=== PATIENT | female | born 1935 | race Caucasian/White ===

== ENCOUNTER → 2016-11-04 | Outpatient (CLI) | payer OTHER ==
[~2016-11-04] MED LIST: BROM0.0911 OP; CHOL2000 PO; CYAN100020 PO; IBUP-1459 PO; LORA-741 PO; MELO7.5T5 PO; OMEP40CA PO; OMEP40CA41 PO; PRED1SUS3 OPR; SERT-234 PO
[2016-11-04 17:04] LABS: BASO % 0.4 %; BASO ABS # 0.03 K/uL (0-0.2); COMPLETE YES; EOS % 0.6 %; HEMATOCRIT 46.1 % (37-47); IG% 0.3 %; LYMPH % 13.2 %; LYMPH ABS # 0.91 K/uL (1.2-3.4); MEAN CELL VOLUME 95.2 fL (80-100); MEAN CORPUSCULAR HEMOGLOBIN 30.6 pg (25-34); MEAN CORPUSCULAR HGB CONC 32.1 g/dl (32-36); MEAN PLATELET VOLUME 9.9 fL (7.4-10.4); MONO % 9.4 %; NEUT % 76.1 %; PLATELET COUNT 198 K/uL (130-400); RED BLOOD COUNT 4.84 M/uL (4.2-5.4); WHITE BLOOD COUNT 6.88 K/uL (4.8-10.8)
[2016-11-04 17:23] LABS: ALT/SGPT 29 U/L (12-78); AST/SGOT 17 U/L (15-37); BLOOD UREA NITROGEN 19 mg/dl (7-18); CALCIUM 8.7 mg/dl (8.5-10.1); CARBON DIOXIDE 27 mmol/L (21-32); CHLORIDE 110 mmol/L (98-107); CREATININE 0.69 mg/dl (0.60-1.20); GLUCOSE 94 mg/dl (70-99); POTASSIUM 4.2 mmol/L (3.5-5.1); SODIUM 143 mmol/L (136-145)
[2016-11-04 17:34] LABS: ALKALINE PHOSPHATASE 88 U/L (45-117)
== END | disposition home or self-care (01) ==
LOC: C.LABBC 12:40
PROVIDERS: ATTEND Internal Medicine
DX: R63.4 Abnormal weight loss (principal)

== ENCOUNTER → 2016-12-30 | Outpatient (CLI) | payer OTHER ==
[~2016-12-30] MED LIST changes: -BROM0.0911 OP; -IBUP-1459 PO; -OMEP40CA PO; -PRED1SUS3 OPR
--- NOTE | 2016-12-30 10:30 | DIAGNOSTIC IMAGING REPORT ---
ABDOMEN COMPLETE (US) CLINICAL HISTORY: 81 years-old Female with R63.4 Abnormal weight lossK92.1 [facility] Acute weight loss. TECHNIQUE: Multiple real time sonographic images of the abdomen were obtained assessing quijano-scale appearance. FINDINGS: PANCREAS: The pancreas is partially obscured by bowel gas. The visualized portions of the pancreas are normal without focal lesion or pancreatic duct dilatation. LIVER: The liver demonstrates a homogeneous parenchymal echotexture measuring up to 14 cm. There is no intrahepatic bile duct dilation, focal lesion, or contour nodularity. There is no ascites. GALLBLADDER: The gallbladder is filled with stones and minimal layering sludge without, wall thickening, or pericholecystic fluid. Negative sonographic Hennessy's sign. The common bile duct measures 0.2 cm. RIGHT KIDNEY: The right kidney measures 10.5 x 3.7 x 4.0 cm The parenchymal echotexture and cortical thickness are normal. Multiple right-sided kidney stones are noted measuring up to 0.5 cm without hydronephrosis. LEFT KIDNEY: The left kidney measures 10.7 x 5.0 x 5.1 cm. The parenchymal echotexture and cortical thickness are normal. No nephrolithiasis or hydronephrosis. SPLEEN: The spleen measures 9.5 cm and is normal in echotexture. No focal lesions are identified. VASCULATURE: Proximal aorta measures 1.3 x 1.5 cm. Mid aorta measures 1.3 x 1.37 m. Distal aorta measures 1.3 x 0.8 cm. The IVC appears patent. IMPRESSION: 1. Cholelithiasis and layering gallbladder sludge without sonographic evidence of acute cholecystitis. 2. Right-sided nephrolithiasis without hydronephrosis. 3. Remainder of the study is within normal limits. The above report was generated using voice recognition software. It may contain grammatical, syntax or spelling errors. Electronically signed by: Lele Lopez M.D. 12/30/2016 10:29 AM Dictated Date/Time: 12/30/2016 10:24 AM
== END | disposition home or self-care (01) ==
LOC: C.ULTR 08:51
PROVIDERS: ATTEND Internal Medicine
DX: K92.1 Melena (principal); R63.4 Abnormal weight loss; K80.20 Calculus of gallbladder without cholecystitis without obstruction; N20.0 Calculus of kidney

== ENCOUNTER → 2017-01-04 | Day surgery (SDC) | payer OTHER ==
[2016-12-28 10:22] VITALS: Ht 162.6 cm; Wt 59.1 kg
[~2017-01-04] VITALS: Ht 162.6 cm; Wt 59.1 kg
[~2017-01-04] MED LIST changes: +LIDOCAINE HCL 2% 2 ML VIAL (20MG/ML) ONE; +PROPOFOL IV EMULSION 10 MG/ML 20 ML VIAL IV ONE; +SODIUM CHLORIDE 0.9% 500ML 500 ML IV ONE
--- NOTE | 2017-01-04 08:54 | Endo History and Physical ---
History & Physical Date of Service: Jan 04, 2017. Chief Complaint: Hematochezia Referring Physician: Dr. Jai Leonard History of Present Illness rectal bleeding; weight loss; first colonoscopy Past Surgical History Hx Cardiac Surgery: No Hx Internal Defibrillator: No Hx Pacemaker: No Hx Abdominal Surgery: No Hx of Implantable Prosthesis: No Hx Post-Op Nausea and Vomiting: Yes Hx Cancer Surgery: No Hx Thoracic Surgery: No Hx Orthopedic: No Hx Urinary Tract Surgery: No Family History None Social History Smoking Status: Never Smoker Hx Substance Use: No Hx Alcohol Use: No Allergies Coded Allergies: NO KNOWN DRUG ALLERGIES (Verified Allergy, Unknown, ., 12/28/16) Current Medications Reported Home Medications Medications Dose Route/Sig Max Daily Dose Days Date Category Zoloft (Sertraline HCl) 100 Mg Tab 200 Mg PO QAM 12/28/16 Reported Ativan (Lorazepam) 0.5 Mg Tab 0.5 Tab PO QAM PRN 12/28/16 Reported Mobic (Meloxicam) 7.5 Mg Tab 7.5 Mg PO QAM 12/28/16 Reported Prilosec (Omeprazole) 40 Mg Cap 40 Mg PO QAM 12/28/16 Reported Vitamin B12 (Cyanocobalamin) 1,000 Mcg Tab 1 Tab PO QAM 02/23/16 Reported Vitamin D3 (Cholecalciferol) 2,000 Unit Cap 2 Cap PO QAM 90 02/23/16 Reported Vital Signs Weight (Kilograms): 59.09 Height (Feet): 5 Height (Inches): 4 Date Time Temp Pulse Resp B/P (MAP) Pulse Ox O2 Delivery O2 Flow Rate FiO2 01/04/17 08:15 36.9 83 20 180/82 (114) 98 Room Air Physical Exam General Appearance: WD/WN, no apparent distress Assessment and Plan colonoscopy today
--- NOTE | 2017-01-04 09:21 | GI REPORT ---
Procedure Date: 01/04/2017 8:44 AM Procedure: Colonoscopy Indications: Screening for colorectal malignant neoplasm, Incidental - Rectal bleeding, Weight loss Medicines: Propofol per Anesthesia Complications: No immediate complications. Estimated blood loss: None. Estimated Blood Loss: Estimated blood loss: none. Procedure: Pre-Anesthesia Assessment: - Prior to the procedure, a History and Physical was performed, and patient medications, allergies and sensitivities were reviewed. The patient's tolerance of previous anesthesia was reviewed. - The risks and benefits of the procedure and the sedation options and risks were discussed with the patient. All questions were answered and informed consent was obtained. - Patient identification and proposed procedure were verified prior to the procedure by the physician and the nurse. The procedure was verified in the pre-procedure area in the procedure room. - Mental Status Examination: alert and oriented. Airway Examination: normal oropharyngeal airway and neck mobility. Respiratory Examination: clear to auscultation. CV Examination: normal. Abdominal Examination: bowel sounds present, abdomen soft and non-tender, no masses or organomegaly noted. - ASA Grade Assessment: II - A patient with mild systemic disease. After I obtained informed consent, the scope was passed under direct vision. Throughout the procedure, the patient's blood pressure, pulse, and oxygen saturations were monitored continuously. The Scope was introduced through the anus and advanced to the terminal ileum. The colonoscopy was performed without difficulty. The patient tolerated the procedure well. The quality of the bowel preparation was good. Findings: The perianal and digital rectal examinations were normal. Pertinent negatives include normal sphincter tone and no palpable rectal lesions. The terminal ileum appeared normal. The entire examined colon appeared normal on direct and retroflexion views. Impression: - The examined portion of the ileum was normal. - The entire examined colon is normal on direct and retroflexion views. - Internal hemorrhoids. - No specimens collected. Recommendation: - No repeat colonoscopy due to age and the absence of advanced adenomas. - Return to primary care physician as previously scheduled. - Discharge patient to home. Daniak Garza D.O. Danika Garza DO 01/04/2017 9:20:57 AM This report has been signed electronically. Note Initiated On: 01/04/2017 8:44 AM I attest to the content of the Intraoperative Record and orders documented therein, exceptions below
--- NOTE | 2017-01-04 09:22 | Discharge Instructions ---
Endoscopy Patient Instructions Date / Procedure(s) Performed Jan 04, 2017. Colonoscopy Allergy Information Coded Allergies: NO KNOWN DRUG ALLERGIES (Verified Allergy, Unknown, ., 12/28/16) Discharge Date / Findings Jan 04, 2017. hemorrhoids Medication Instructions Stopped Medication(s): stopped Mobic week ago Restart Stopped Medication(s): OK to resume home medications Provider Instructions Activity Restrictions - No exercising or heavy lifting for 24 hours. - Do not drink alcohol the day of the procedure. - Do not drive a car or operate machinery until the day after the procedure. - Do not make any important decisions or sign important papers in 24 hours after the procedure. Following Day: - Return to full activity which may include returning to work/school. Diet Start your diet with liquids and light foods (jello, soup, juice, toast). Then eat your usual diet if not nauseated. Treatment For Common After Affects For mild abdominal pain, bloating, or excessive gas: - Rest - Eat lightly - Lie on right side Follow-Up Information Follow-up with Dr. Jai Leonard as scheduled Anesthesia Information What You Should Know You have had a procedure that required some medicine to reduce anxiety and discomfort. This treatment is called moderate sedation. After receiving the treatment, you may be sleepy, but you will be able to breathe on your own. The effects of the treatment may last for several hours. Follow these instructions along with Activity/Diet recommendations noted above: * Do NOT do anything where dizziness or clumsiness would be dangerous. * Rest quietly at home today, then you can be up and about tomorrow. * Have a responsible person stay with you the rest of today. * You may have had an I.V. today. If so, you may take the dressing off later today. Recommendations Call your doctor if: * Trouble breathing * Continuous vomiting for more than 24 hours * Temperature above 101 degrees * Severe abdominal pain or bloating * Pain not relieved by pain medicine ordered * There is increased drainage or redness from any incision * A large amount of rectal bleeding greater than 2-3 tablespoons. (If you had a polyp/s removed or have hemorrhoids, a small amount of blood - from the rectum is to be expected.) * You have any unanswered questions or concerns. IN THE EVENT OF A SERIOUS EMERGENCY, GO TO THE NEAREST EMERGENCY ROOM Your discharge instructions were prepared by provider Danika Garza. Patient Instructions Signature Page Mirna Racprudencio Patient (or Guardian) Signature/Date: I have read and understand the instructions given to me by my caregivers. Caregiver/RN/Doctor Signature/Date: The above-named patient and/or guardian has received patient instructions on this date. + Original Patient Signature Page (only) stays with chart. Please make copy for patient.
--- NOTE | 2017-01-04 09:43 | Anesthesiology Progress Note ---
Anesthesia Post Op Note Date & Time Jan 04, 2017 at 09:42 Vital Signs Pain Intensity: 0 Vital Signs Past 12 Hours Date Time Temp Pulse Resp B/P (MAP) Pulse Ox O2 Delivery O2 Flow Rate FiO2 01/04/17 09:29 72 20 121/65 (83) 96 Room Air 01/04/17 09:15 36.7 65 20 93/49 (64) 98 Nasal Cannula 2 01/04/17 08:15 36.9 83 20 180/82 (114) 98 Room Air Notes Mental Status: alert / awake / arousable, participated in evaluation Pt Amnestic to Procedure: Yes Nausea / Vomiting: adequately controlled Pain: adequately controlled Airway Patency, RR, SpO2: stable & adequate BP & HR: stable & adequate Hydration State: stable & adequate Anesthetic Complications: no major complications apparent Awake, doing well, VSS
[2017-01-04 09:45] VITALS: BP 136/61; PULSE 73; O2SAT 96
== END | disposition home or self-care (01) ==
LOC: C.GI 07:34
PROVIDERS: ATTEND Internal Medicine
DX: Z12.11 Encounter for screening for malignant neoplasm of colon (principal); K64.8 Other hemorrhoids
CPT/HCPCS: G0121

== ENCOUNTER → 2017-02-23 | Outpatient (CLI) | payer OTHER ==
[~2017-02-23] MED LIST changes: -LIDOCAINE HCL 2% 2 ML VIAL (20MG/ML) ONE; -PROPOFOL IV EMULSION 10 MG/ML 20 ML VIAL IV ONE; -SODIUM CHLORIDE 0.9% 500ML 500 ML IV ONE
[2017-02-23 12:27] LABS: BASO ABS # 0.05 K/uL (0-0.2); COMPLETE YES; EOS % 1.4 %; HEMATOCRIT 41.8 % (37-47); IG% 0.4 %; LYMPH % 21.7 %; LYMPH ABS # 1.12 K/uL (1.2-3.4); MEAN CELL VOLUME 92.9 fL (80-100); MEAN CORPUSCULAR HEMOGLOBIN 31.3 pg (25-34); MEAN CORPUSCULAR HGB CONC 33.7 g/dl (32-36); MEAN PLATELET VOLUME 9.8 fL (7.4-10.4); MONO % 8.5 %; PLATELET COUNT 203 K/uL (130-400); WHITE BLOOD COUNT 5.15 K/uL (4.8-10.8)
[2017-02-23 13:31] LABS: ALT/SGPT 23 U/L (12-78); AST/SGOT 18 U/L (15-37); BLOOD UREA NITROGEN 17 mg/dl (7-18); BUN/CREATININE RATIO 27.3 (10-20); CALCIUM 8.7 mg/dl (8.5-10.1); CARBON DIOXIDE 28 mmol/L (21-32); CHLORIDE 108 mmol/L (98-107); CREATININE 0.63 mg/dl (0.60-1.20); GLUCOSE 97 mg/dl (70-99); POTASSIUM 4.1 mmol/L (3.5-5.1); SODIUM 141 mmol/L (136-145)
[2017-02-23 13:35] LABS: ESTIMATED AVERAGE GLUCOSE 105 mg/dl; HA1C FLAG Normal (Normal)
[2017-02-23 13:44] LABS: ALB/GLOB RATIO 1.1 (0.9-2); ALKALINE PHOSPHATASE 95 U/L (45-117); CHOLESTEROL 185 mg/dl (0-200); CHOLESTEROL/HDL RATIO 3.6; HDL CHOLESTEROL 52 mg/dl; LDL CHOLESTEROL CALCULATED 115 mg/dl; TRIGLYCERIDES 89 mg/dl (0-150); VERY LOW DENSITY LIPOPROT CALC 18 mg/dl
== END | disposition home or self-care (01) ==
LOC: C.LABPVFM 08:44
PROVIDERS: ATTEND Internal Medicine
DX: F41.9 Anxiety disorder, unspecified (principal)

== ENCOUNTER 2020-10-05 22:28 | Inpatient (IN) ==
[2020-10-05] MEDS ORDERED: MoRPHine SULFATE 4 MG/ML 1 ML CARP\\VIAL IV PRN (22:37)
[2020-10-05] MEDS ORDERED: ACETAMINOPHEN 1000 MG/100 ML IV IV STA (22:37)
--- NOTE | 2020-10-05 22:42 | Emergency Department Note ---
Impression & Plan Left hip pain, Closed fracture of left hip, Fall ED Provider Note NAME: LINDA LINDA AGE: 85 SEX: F : 1935 ARRIVES VIA: Ambulance INFORMANT: [Patient][ems] ED PROVIDER(S): [Caesar Perez MD] CHIEF COMPLAINT: Left hip and leg pain HISTORY OF PRESENT ILLNESS: The patient is an 85-year-old female who presents to the ER by ambulance after falling onto her buttock and injuring her left hip and leg. The pain is present primarily with movement, not really when she is still. There was no reported loss of consciousness. No reported head injury. The patient does not have any headache or neck pain. She does complain of left hip and leg pain when she is moved. The patient states that she has difficulty with her balance and walking and basally just lost her stability and fell. She fell as she was trying to go up a few stairs. Patient presents covered in stool. The nursing staff was busy cleaning her when I entered the room. REVIEW OF SYSTEMS: See HPI for pertinent positives and negatives. A total of ten systems were re viewed and were otherwise negative. PMHx/PSHx: See Below SOCIAL HISTORY: See Below. PHYSICAL EXAM: GENERAL: Patient is in no acute distress. HEENT: No acute trauma, normocephalic atraumatic, mucous membranes moist, no nasal congestion, no scleral icterus. NECK: No stridor, no adenopathy, nontender posterior C-spine, trachea is midline. LUNGS: Clear to auscultation bilaterally, no wheeze, no rhonchi, breath sounds equal. HEART: 2/6 systolic murmur, regular rate and rhythm. ABDOMEN: Soft, nontender, bowel sounds positive, no hernias, no peritonitis. EXTREMITIES: No cyanosis. The left lower extremity is externally rotated and somewhat shortened. The patient does have pain to move or palpate the area of t he left hip and proximal femur. No evidence for left lower extremity neurovascular compromise. NEUROLOGIC: Awake and alert, oriented x3, no speech slur, no acute motor or sensory deficits, no focal weakness. SKIN: No rash, no jaundice, no diaphoresis. DIFFERENTIAL DIAGNOSIS: Fracture, dislocation, neurovascular compromise, compartment syndrome, intracranial bleeding, C-spine injury, soft tissue injury, as well as other pathologies. EMERGENCY DEPARTMENT COURSE/PROCEDURES: ECG: Indication was hip fracture. The ECG shows a normal sinus rhythm with a rate of 77. There are some inverted T waves in the lateral leads. There is a potential old inferior infarct. There is no ST elevation, no PVCs. The QTc is 468. Continuous Cardiac Monitoring: An order was placed for continuous cardiac monitoring. The monitor shows a rate of 73 with normal sinus rhythm. MEDICAL DECISION MAKING: There is no leukocytosis or concerning anemia. There is a normal platelet count. No coagulopathy. No significant electrolyte abnormality or kidney failure. No concerning liver enzyme elevation. Covid testing is pending. Chest film showed some chronic change to the parenchyma, no pneumonia or CHF. P telma and left femur films demonstrate a left intertrochanteric hip fracture. No pelvic fracture. On exam, the patient's left hip was painful with movement. Her left lower extremity had the appearance of a left hip fracture. I could not find any evidence for injury to the head or neck or upper extremities. Patient received IV Tylenol, she was given IV morphine. I did contact the orthopedist decision support analyst. I spoke with the patient and her family. I did talk with case management. The on-call hospitalist was consulted. Patient requires a hospital stay and orthopedic intervention. Past Med/Surg History Medical History Abnormal electrocardiogram Abnormal weight loss Anxiety Arm paresthesia, right Arthralgia of multiple joints Arthritis of hand, left Arthritis of hand, right Arthritis of knee B12 deficiency Back pain, lumbosacral Chronic pain of both knees Depression Depression with anxiety Dyslipidemia Elevated blood pressure reading Fatigue Generalized osteoarthritis of multiple sites GERD (gastroesophageal reflux disease) Hematochezia HTN (hypertension) Myalgia Osteoarthritis of knees, bilateral Osteoporosis Spina bifida occulta Thrombocytopenia Vitamin D deficiency Surgical History H/O breast biopsy 2009 Family History Unknown Hypertension Diabetes Alcoholism Hyperlipidemia Grandfather , AGE 60 COPD (chronic obstructive pulmonary disease) Mother , AGE 70 FIBROSIS No problems noted. Denies family history of Ovarian cancer Prostate cancer Myocardial infarction Breast cancer Colorectal cancer Social History Smoking Status: Never smoker Second Hand Exposure: No; Hx Alcohol Use: No Hx Substance Use: No Preferred Language: Slovak Communication Ability: Effective Visual Impairment: Limited Hearing Ability: Use of Hearing Aid Kidney Puller Required: No Beliefs That Will Affect Care: None marital status: Current Living Situation: Alone current occupational status: retired How many Children do You have: 1 Feels Safe at Home: Yes Childhood Exposure to Second-Hand Smoke: Yes caffeine: Yes (drinks soda once a day ) Dental Care, Regularly: Yes Physical Activity Frequency: Does not Exercise Seatbelt Use: always Sunscreen Use: No (doesn't go in the sun ) Allergies Allergies Allergy/AdvReac Type Severity Reaction Status Date / Time No Known Drug Allergies Allergy Unknown . Verified 09/18/20 13:28 Home Meds Home Medications Medication Instructions Recorded Confirmed calcium carbonate 600 mg calcium 600 mg PO DAILY #1 tab 09/29/18 10/05/20 (1,500 mg) tablet cholecalciferol (vitamin D3) 25 2,000 units PO DAILY tab 09/29/18 10/05/20 mcg (1,000 unit) tablet cyanocobalamin (vitamin B-12) 1,000 mcg PO DAILY #90 tab 09/29/18 10/05/20 1,000 mcg tablet Previous Rx's Medication Instructions Recorded alendronate 70 mg tablet 70 mg PO WEEKLY #12 tab 11/28/19 amlodipine 10 mg tablet 10 mg PO DAILY #90 tab 11/28/19 omeprazole 40 mg capsule,delayed 40 mg PO DAILY #90 cap 03/31/20 release meloxicam 7.5 mg tablet 7.5 mg PO DAILY PRN #30 tab 06/27/20 sertraline 100 mg tablet 200 mg PO DAILY #180 tab 07/25/20 Walking Cane 1 ea .ROUTE .COMPLEX #1 ea 09/18/20 lorazepam 0.5 mg tablet 0.25 mg PO DAILY PRN #30 tab 09/29/20 Results & Data (ED) Vital Signs Vital Signs - 24 hr 10/05/20 22:40 10/05/20 22:41 10/05/20 23:32 Temperature 36.7 C Temperature Source Oral Pulse Rate 73 80 80 Pulse Rate from SpO2 Sensor 80 79 Respiratory Rate 18 23 24 Respiratory Effort / Characteristics Non-Labored Spontaneous Respiratory Depth Normal Respiratory Pattern Regular Blood Pressure 198/73 H 198/73 H 149/70 H Blood Pressure Mean 114 114 96 Blood Pressure Position Lying Pulse Oximetry 95 93 94 Oxygen Delivery Method Room Air Room Air Room Air Sepsis Recent Fever Within 48 Hours No Sepsis New/Unexplained Change in Mental Status No Sepsis Action Taken by Nursing No Action Required Home Medications Current Medication List: was personally reviewed by me Laboratory Data Attestation: I reviewed the patient's lab results. Result diagrams: 10/05/20 22:48 10/05/20 22:48 Lab Results 10/05/20 10/05/20 10/05/20 Range/Units 22:48 22:48 22:48 WBC 9.31 (4.8-10.8) K/uL RBC 4.61 (4.2-5.4) M/uL Hgb 13.6 (12.0-16.0) g/dL Hct 41.4 (37-47) % MCV 89.8 (80-100) fL MCH 29.5 (25-34) pg MCHC 32.9 (32-36) g/dL RDW Std Deviation 45.3 (36.4-46.3) fL RDW Coeff of Angelica 13.8 (11.5-14.5) % Plt Count 210 (130-400) K/uL MPV 9.0 (7.4-10.4) fL Immature Gran % (Auto) 0.4 % Neut % (Auto) 80.3 % Lymph % (Auto) 10.4 % [place] % (Auto) 8.4 % Eos % (Auto) 0.3 % Baso % (Auto) 0.2 % Neut # (Auto) 7.47 H (1.4-6.5) K/uL Lymph # (Auto) 0.97 L (1.2-3.4) K/uL [place] # (Auto) 0.78 H (0.11-0.59) K/uL Eos # (Auto) 0.03 (0-0.5) K/uL Baso # (Auto) 0.02 (0-0.2) K/uL Immature Gran # (Auto) 0.04 H (0.00-0.02) K/uL PT 9.7 (9.0-12.0) Seconds INR 1.0 (0.9-1.1) APTT 23.2 (21.0-31.0) Seconds PTT Ratio 0.9 Sodium (136-145) mmol/L Potassium (3.5-5.1) mmol/L Chloride (98-107) mmol/L Carbon Dioxide (21-32) mmol/L Anion Gap (3-11) BUN (7-18) mg/dl Creatinine (0.6-1.2) mg/dl Est Cr Clr Drug Dosing ml/min Est GFR ( Amer) ml/min Est GFR (Non-Af Amer) ml/min BUN/Creatinine Ratio (10-20) Glucose (70-99) mg/dl Calcium (8.5-10.1) mg/dl Total Bilirubin (0.2-1) mg/dl AST (15-37) U/L ALT (12-78) U/L Alkaline Phosphatase (45-117) U/L Total Protein (6.4-8.2) gm/dl Albumin (3.4-5.0) gm/dl Globulin (2.5-4.0) gm/dl Albumin/Globulin Ratio (0.9-2) COVID-19 Eval Order Blood Type Cancelled Antibody Screen Cancelled 10/05/20 10/05/20 10/05/20 Range/Units 22:48 23:30 23:31 WBC (4.8-10.8) K/uL RBC (4.2-5.4) M/uL Hgb (12.0-16.0) g/dL Hct (37-47) % MCV (80-100) fL MCH (25-34) pg MCHC (32-36) g/dL RDW Std Deviation (36.4-46.3) fL RDW Coeff of Angelica (11.5-14.5) % Plt Count (130-400) K/uL MPV (7.4-10.4) fL Immature Gran % (Auto) % Neut % (Auto) % Lymph % (Auto) % [place] % (Auto) % Eos % (Auto) % Baso % (Auto) % Neut # (Auto) (1.4-6.5) K/uL Lymph # (Auto) (1.2-3.4) K/uL [place] # (Auto) (0.11-0.59) K/uL Eos # (Auto) (0-0.5) K/uL Baso # (Auto) (0-0.2) K/uL Immature Gran # (Auto) (0.00-0.02) K/uL PT (9.0-12.0) Seconds INR (0.9-1.1) APTT (21.0-31.0) Seconds PTT Ratio Sodium 140 (136-145) mmol/L Potassium 4.1 (3.5-5.1) mmol/L Chloride 106 (98-107) mmol/L Carbon Dioxide 26 (21-32) mmol/L Anion Gap 8.0 (3-11) BUN 19 H (7-18) mg/dl Creatinine 0.63 (0.6-1.2) mg/dl Est Cr Clr Drug Dosing 51.5 ml/min Est GFR ( Amer) 93.5 ml/min Est GFR (Non-Af Amer) 80.6 ml/min BUN/Creatinine Ratio 29.7 H (10-20) Glucose 128 H (70-99) mg/dl Calcium 8.8 (8.5-10.1) mg/dl Total Bilirubin 0.3 (0.2-1) mg/dl AST 23 (15-37) U/L ALT 22 (12-78) U/L Alkaline Phosphatase 109 (45-117) U/L Total Protein 7.0 (6.4-8.2) gm/dl Albumin 3.4 (3.4-5.0) gm/dl Globulin 3.6 (2.5-4.0) gm/dl Albumin/Globulin Ratio 1.0 (0.9-2) COVID-19 Eval Order Covid19 at [facility] Blood Type O Positive Antibody Screen NEGATIVE Administered Medications Morphine Sulfate (Morphine Sulfate 4 Mg/Ml 1 Ml Carp\Vial) 4 mg IV Q30M PRN PRN Reason: Severe Pain (Rating 7,8,9,10) Stop: 10/19/20 22:36 Last Admin: 10/05/20 22:55 Dose: 4 mg Documented by: [id number] Discontinued Medications Acetaminophen (Acetaminophen 1000 Mg/100 Ml Iv) 1,000 mg IV NOW STA Stop: 10/05/20 22:38 Last Admin: 10/05/20 22:55 Dose: 1,000 mg Documented by: [id number] Imaging Data Attestation: I personally reviewed and interpreted this imaging study as follows: My Impression: Pelvis and left femur films: There is no pelvic fracture. There is an intertrochanteric left hip fracture. Chest x-ray: There is some chronic parenchymal change, no pneumonia or CHF per my review. Head Trauma GCS Score: 15 Discharge Plan Visit Data Chief Complaint: Hip Pain Stated Complaint: FALL w/ lt HIP/THIGH PAIN ON MOVEMENT ED Provider: Caesar Perez Discharge Problem: Left hip pain, Closed fracture of left hip, Fall Patient Disposition: Admitted As Inpatient Condition: Fair Forms Stand Alone Forms: [facility], Virtual Emergency Department, Important Visit Information Prescriptions Prescriptions: No Action alendronate 70 mg tablet 70 mg PO WEEKLY Qty: 12 RF: 3 amlodipine 10 mg tablet 10 mg PO DAILY Qty: 90 RF: 3 omeprazole 40 mg capsule,delayed release(DR/EC) 40 mg PO DAILY Qty: 90 RF: 3 meloxicam 7.5 mg tablet 7.5 mg PO DAILY PRN (Reason: PRN) Qty: 30 RF: 3 sertraline [Zoloft] 100 mg tablet 200 mg PO DAILY Qty: 180 RF: 3 lorazepam 0.5 mg tablet 0.25 mg PO DAILY PRN (Reason: anxiety) Qty: 30 RF: 0 Walking Cane Misc 1 ea .ROUTE .COMPLEX Qty: 1 RF: 0 calcium carbonate 600 mg calcium (1,500 mg) tablet 600 mg PO DAILY Qty: 1 RF: 0 cyanocobalamin (vitamin B-12) 1,000 mcg tablet 1,000 mcg PO DAILY Qty: 90 RF: 0 cholecalciferol (vitamin D3) 1,000 unit tablet 2,000 units PO DAILY RF: 0 Referrals Referrals: Jai Leonard MD [Primary Care Provider] - Discharge Problem: Closed fracture of left hip Qualifiers: Encounter type: initial encounter Qualified Code(s): S72.002A - Fracture of unspecified part of neck of left femur, initial encounter for closed fracture Fall Qualifiers: Encounter type: initial encounter Qualified Code(s): W19.XXXA - Unspecified fall, initial encounter
[2020-10-05 22:58] LABS: Basophils # (auto) 0.02 K/uL (0-0.2); Basophils % (auto) 0.2 %; Eosinophils # (auto) 0.03 K/uL (0-0.5); Eosinophils % (auto) 0.3 %; Hematocrit (blood only) 41.4 % (37-47); Hemoglobin 13.6 g/dL (12.0-16.0); Immature Granulocytes # (auto) 0.04 K/uL (0.00-0.02); Immature Granulocytes % (auto) 0.4 %; Lymphocytes # (auto) 0.97 K/uL (1.2-3.4); Lymphocytes % (auto) 10.4 %; Mean Corpuscular Hemoglobin 29.5 pg (25-34); Mean Corpuscular Hgb Conc 32.9 g/dL (32-36); Mean Corpuscular Volume 89.8 fL (80-100); Monocytes # (auto) 0.78 K/uL (0.11-0.59); Monocytes % (auto) 8.4 %; Neutrophils # (auto) 7.47 K/uL (1.4-6.5); Neutrophils % (auto) 80.3 %; Platelet Count 210 K/uL (130-400); RDW Coefficient of Variation 13.8 % (11.5-14.5); RDW Standard Deviation 45.3 fL (36.4-46.3); Red Blood Count 4.61 M/uL (4.2-5.4); White Blood Count 9.31 K/uL (4.8-10.8)
[2020-10-05 23:10] LABS: Partial Thromboplastin Ratio 0.9; Partial Thromboplastin Time 23.2 Seconds (21.0-31.0); Prothrombin Time 9.7 Seconds (9.0-12.0)
[2020-10-05 23:17] LABS: Albumin Level 3.4 gm/dl (3.4-5.0); BUN Creatinine Ratio 29.7 (10-20); Calcium 8.8 mg/dl (8.5-10.1); Creatinine Clr Calc Pharmacy 51.5 ml/min; Est GFR (African American) 93.5 ml/min; Est GFR (Non-African American) 80.6 ml/min; Potassium 4.1 mmol/L (3.5-5.1)
[2020-10-05 23:20] LABS: Bilirubin,Total 0.3 mg/dl (0.2-1); Globulin 3.6 gm/dl (2.5-4.0)
--- NOTE | 2020-10-06 00:15 | History & Physical Report ---
Date of Service October 06, 2020 Assessment & Plan (1) Closed left hip fracture: 85yo female with history of HTN, HLP and GERD presenting with acute left hip fracture following a mechanical fall at home. Patient is neurovascularly intact. Pain is well controlled. Ambulatory at baseline. Patient denies chest pain, dyspnea or exertional symptoms. Prior to her injury she was able to walk up a flight of stairs without difficulty. Per RCRI score patient is Class I risk for MACE. She is medically optimized and may proceed to surgery without additional testing. -Admit to medical -Keep NPO after midnight -Orthopedic Surgery consultation appreciated -Tylenol PRN -Oxycodone PRN -Morphine PRN -Colace and Miralax PRN -Resume home Calcium/Vitamin D and Alendronate on discharge Present on Admission?: Yes (2) HTN (hypertension): Blood pressure elevated on arrival at 198/73 which has since improved. Presently 149/70. -Pain control as above -Continue Amlodipine 10mg po daily Present on Admission?: Yes (3) Depression with anxiety: Chronic. Well controlled -Continue Sertraline 200mg daily -Continue Ativan PRN Present on Admission?: Yes (4) GERD (gastroesophageal reflux disease): Chronic. Well controlled. -Continue Omeprazole F/E/N - Heplock. Electrolytes WNL. NPO for now Ppx - SCDs Code - Full per discussion with patient Dispo - Admit to medical Present on Admission?: Yes History of Present Illness Chief Complaint: left hip fracture Primary Care Provider: Jai Leonard MD Mirna Chopra is a pleasant 85yo female with history of HTN, HLP and GERD presenting with left hip fracture. Patient lives alone and is independent, ambulates with a cane at baseline. She was walking up stairs to her home this evening when she lost her balance and fell backward. She landed on her buttocks then rolled onto her back and lightly bumped the back of her head. She had no LOC, no chest pain/palpitations/dizziness. She was unable to bear weight on her left leg. No additional complaints at this time. She denies chest pain, palpitations, cough, SOB, nausea, vomiting, diarrhea or constipation. Presently pain is well controlled after receiving Morphine in ER. ER Course: Tylenol, Morphine Allergies Allergy/AdvReac Type Severity Reaction Status Date / Time No Known Drug Allergies Allergy Unknown . Verified 09/18/20 13:28 Home Medications Medication Instructions Recorded Confirmed Type calcium carbonate 600 mg calcium 600 mg PO DAILY #1 tab 09/29/18 10/05/20 History (1,500 mg) tablet cholecalciferol (vitamin D3) 25 2,000 units PO DAILY tab 09/29/18 10/05/20 History mcg (1,000 unit) tablet cyanocobalamin (vitamin B-12) 1,000 mcg PO DAILY #90 tab 09/29/18 10/05/20 Histo ry 1,000 mcg tablet alendronate 70 mg tablet 70 mg PO WEEKLY #12 tab 11/28/19 10/05/20 Rx amlodipine 10 mg tablet 10 mg PO DAILY #90 tab 11/28/19 10/05/20 Rx omeprazole 40 mg capsule,delayed 40 mg PO DAILY #90 cap 03/31/20 10/05/20 Rx release meloxicam 7.5 mg tablet 7.5 mg PO DAILY PRN #30 tab 06/27/20 10/05/20 Rx sertraline 100 mg tablet 200 mg PO DAILY #180 tab 07/25/20 10/05/20 Rx Walking Cane 1 ea .ROUTE .COMPLEX #1 ea 09/18/20 10/05/20 Rx lorazepam 0.5 mg tablet 0.25 mg PO DAILY PRN #30 tab 09/29/20 10/05/20 Rx Past Med/Surg History Medical History (Updated 10/06/20 @ 00:27 by Simran Mayes DO) Abnormal electrocardiogram Abnormal weight loss Anxiety Arm paresthesia, right Arthralgia of multiple joints Arthritis of hand, left Arthritis of hand, right Arthritis of knee B12 deficiency Back pain, lumbosacral Chronic pain of both knees Depression Depression with anxiety Dyslipidemia Elevated blood pressure reading Fatigue Generalized osteoarthritis of multiple sites GERD (gastroesophageal reflux disease) Hematochezia HTN (hypertension) Myalgia Osteoarthritis of knees, bilateral Osteoporosis Spina bifida occulta Thrombocytopenia Vitamin D deficiency Surgical History H/O breast biopsy 2009 Family History Unknown Hypertension Diabetes Alcoholism Hyperlipidemia Grandfather , AGE 60 COPD (chronic obstructive pulmonary disease) Mother , AGE 70 FIBROSIS No problems noted. Denies family history of Ovarian cancer Prostate cancer Myocardial infarction Breast cancer Colorectal cancer Social History Smoking Status: Never smoker Second Hand Exposure: No; Hx Alcohol Use: No Hx Substance Use: No Preferred Language: Guyanese Communication Ability: Effective Visual Impairment: Limited Hearing Ability: Use of Hearing Aid Customer Service Leader Required: No Beliefs That Will Affect Care: None marital status: Current Living Situation: Alone current occupational status: retired How many Children do You have: 1 Feels Safe at Home: Yes Childhood Exposure to Second-Hand Smoke: Yes caffeine: Yes (drinks soda once a day ) Dental Care, Regularly: Yes Physical Activity Frequency: Does not Exercise Seatbelt Use: always Sunscreen Use: No (doesn't go in the sun ) Review of Systems Review of Systems: All systems reviewed & are unremarkable except as noted in HPI & below Physical Exam Physical Exam: General: patient resting comfortably, NAD, non-toxic in appearance, AA&O x 4 Skin: warm, dry, intact, no rashes or lesions HEENT: NC/AT, PERRL, EOMI, anicteric sclera, conjunctiva without injection, external ear normal to inspection and nontender, nares patent, moist mucus membranes, dentition intact, no oropharyngeal lesions, neck supple, trachea midline, no LAD, no thyromegaly, no JVD Heart: +S1/S2, regular, no m/r/g Lungs: equal air entry bilaterally, no rales/rhonchi/wheezes Abd: +BS, soft, NT/ND, no masses/organomegaly/ascites Ext: warm, 2+ pulses in UE/LE bilaterally, no clubbing/cyanosis or edema. left leg shortened and externally rotated, LLLE neurovascularly intact, no bruising Neuro: nonfocal, patient AA&O x 4, speech intact, no facial droop, moving all extremities on command with equal strength 5/5 Results & Data Results & Data ([facility]) Vital Signs (Past 12 Hours) Vital Signs Temp Pulse Resp BP Pulse Ox 10/05/20 23:32 80 24 149/70 H 94 10/05/20 22:41 80 23 198/73 H 93 10/05/20 22:40 36.7 C 73 18 198/73 H 95 Laboratory Results Laboratory Results WBC 9.31 K/uL (4.8-10.8) 10/05/20 22:48 RBC 4.61 M/uL (4.2-5.4) 10/05/20 22:48 Hgb 13.6 g/dL (12.0-16.0) 10/05/20 22:48 Hct 41.4 % (37-47) 10/05/20 22:48 MCV 89.8 fL (80-100) 10/05/20 22:48 MCH 29.5 pg (25-34) 10/05/20 22:48 MCHC 32.9 g/dL (32-36) 10/05/20 22:48 RDW Std Deviation 45.3 fL (36.4-46.3) 10/05/20 22:48 RDW Coeff of Angelica 13.8 % (11.5-14.5) 10/05/20 22:48 Plt Count 210 K/uL (130-400) 10/05/20 22:48 MPV 9.0 fL (7.4-10.4) 10/05/20 22:48 Immature Gran % (Auto) 0.4 % 10/05/20 22:48 Neut % (Auto) 80.3 % 10/05/20 22:48 Lymph % (Auto) 10.4 % 10/05/20 22:48 Jewell % (Auto) 8.4 % 10/05/20 22:48 Eos % (Auto) 0.3 % 10/05/20 22:48 Baso % (Auto) 0.2 % 10/05/20 22:48 Neut # (Auto) 7.47 K/uL (1.4-6.5) H 10/05/20 22:48 Lymph # (Auto) 0.97 K/uL (1.2-3.4) L 10/05/20 22:48 Jewell # (Auto) 0.78 K/uL (0.11-0.59) H 10/05/20 22:48 Eos # (Auto) 0.03 K/uL (0-0.5) 10/05/20 22:48 Baso # (Auto) 0.02 K/uL (0-0.2) 10/05/20 22:48 Immature Gran # (Auto) 0.04 K/uL (0.00-0.02) H 10/05/20 22:48 PT 9.7 Seconds (9.0-12.0) 10/05/20 22:48 INR 1.0 (0.9-1.1) 10/05/20 22:48 APTT 23.2 Seconds (21.0-31.0) 10/05/20 22:48 PTT Ratio 0.9 10/05/20 22:48 Sodium 140 mmol/L (136-145) 10/05/20 22:48 Potassium 4.1 mmol/L (3.5-5.1) 10/05/20 22:48 Chloride 106 mmol/L (98-107) 10/05/20 22:48 Carbon Dioxide 26 mmol/L (21-32) 10/05/20 22:48 Anion Gap 8.0 (3-11) 10/05/20 22:48 BUN 19 mg/dl (7-18) H 10/05/20 22:48 Creatinine 0.63 mg/dl (0.6-1.2) 10/05/20 22:48 Est Cr Clr Drug Dosing 51.5 ml/min 10/05/20 22:48 Est GFR ( Amer) 93.5 ml/min 10/05/20 22:48 Est GFR (Non-Af Amer) 80.6 ml/min 10/05/20 22:48 BUN/Creatinine Ratio 29.7 (10-20) H 10/05/20 22:48 Glucose 128 mg/dl (70-99) H 10/05/20 22:48 Calcium 8.8 mg/dl (8.5-10.1) 10/05/20 22:48 Total Bilirubin 0.3 mg/dl (0.2-1) 10/05/20 22:48 AST 23 U/L (15-37) 10/05/20 22:48 ALT 22 U/L (12-78) 10/05/20 22:48 Alkaline Phosphatase 109 U/L (45-117) 10/05/20 22:48 Total Protein 7.0 gm/dl (6.4-8.2) 10/05/20 22:48 Albumin 3.4 gm/dl (3.4-5.0) 10/05/20 22:48 Globulin 3.6 gm/dl (2.5-4.0) 10/05/20 22:48 Albumin/Globulin Ratio 1.0 (0.9-2) 10/05/20 22:48 COVID-19 Eval Order Covid19 at [facility] 10/05/20 23:30 Blood Type Cancelled 10/05/20 22:48 Antibody Screen Cancelled 10/05/20 22:48 Diagnostic Findings Fracture of left hip noted on x-ray of pelvis and hip CXR with no acute abnormality ECG Additional Comments: EKG with NSR at 77, no acute ischemic chagnes, CN=572, QRS=92, KZe=193 PG Care Time/CCT Total # of Minutes Spent Total Time Spent with Patient: Total time spent is greater than 50% in coordination of care (as documented) at patient's floor/unit and/or counseling patient: Coding Level of Care Code 72530 Initial Inpt Care Lvl 2 Diagnoses Closed left hip fracture S72.002A Encounter type: initial encounter HTN (hypertension) I10 Hypertension type: primary hypertension Depression with anxiety F41.8 GERD (gastroesophageal reflux disease) K21.9 Esophagitis presence: esophagitis presence not specified (1) HTN (hypertension) Hypertension type: primary hypertension Qualified Code(s): I10 - Essential (primary) hypertension (2) GERD (gastroesophageal reflux disease) Esophagitis presence: esophagitis presence not specified Qualified Code(s): K21.9 - Gastro-esophageal reflux disease without esophagitis (3) Closed left hip fracture Encounter type: initial encounter Qualified Code(s): S72.002A - Fracture of unspecified part of neck of left femur, initial encounter for closed fracture
[2020-10-06] MEDS ORDERED: ONDANSETRON INJ 2 MG/ML 2 ML VIAL IV PRN ×3 (02:02→16:02)
[2020-10-06] MEDS ORDERED: oxyCODONE HCL IR 5 MG TAB (IMMEDIATE RELEASE) PO PRN ×2 (02:02→16:02)
[2020-10-06] MEDS ORDERED: bisacodyL 10 MG SUPP PR PRN ×2 (02:02→16:02)
[2020-10-06] MEDS ORDERED: POLYETHYLENE (MIRALAX) 17 GM PACK PO PRN (02:02)
[2020-10-06] MEDS ORDERED: MoRPHine SULFATE 2 MG/ML CARP IV PRN (02:02)
[2020-10-06] MEDS ORDERED: ACETAMINOPHEN 325 MG TAB PO PRN (02:02)
[2020-10-06] MEDS ORDERED: DOCUSATE SODIUM 100 MG CAP PO PRN (02:02)
[2020-10-06] MEDS ORDERED: NALOXONE HCL 0.4 MG/1 ML VIAL/CARP IV PRN ×3 (02:02→16:02)
[2020-10-06] MEDS ORDERED: LORazepam 0.5 MG TAB PO PRN (02:02)
[2020-10-06] MEDS ORDERED: MAGNESIUM HYDROXIDE SUSP 30 ML UDC PO PRN ×2 (02:02→16:02)
--- NOTE | 2020-10-06 06:48 | Orthopedic Consultation ---
Date of Service October 06, 2020 Assessment & Plan (1) Closed fracture of left hip: We talked about the diagnosis and treatment options at bedside today. I recommended intramedullary nail fixation of the left hip. We discussed the risk, benefits, and alternatives to the procedure and she elected to proceed. Questions were answered at bedside today. She is currently n.p.o. We plan to fix her hip later this afternoon. The decision was made for surgery today. History of Present Illness Reason for Consultation: Left intertrochanteric hip fracture. Requesting Physician: . Attending Physician: Simran Mayes DO Mirna is a pleasant 85-year-old female who lives at home alone and ambulates with a cane. She was walking up her stairs last evening when she lost balance on one of the first steps and fell backwards. She fell onto her buttock and her left hip. She had immediate left hip pain. She was brought to the emergency room where radiographs demonstrated an intertrochanteric fracture of the left hip. Orthopedics was consulted to evaluate and treat.. Allergies Allergy/AdvReac Type Severity Reaction Status Date / Time No Known Drug Allergies Allergy Unknown . Verified 09/18/20 13:28 Home Medications Medication Instructions Recorded Confirmed Type calcium carbonate 600 mg calcium 600 mg PO DAILY #1 tab 09/29/18 10/05/20 History (1,500 mg) tablet cholecalciferol (vitamin D3) 25 2,000 units PO DAILY tab 09/29/18 10/05/20 History mcg (1,000 unit) tablet cyanocobalamin (vitamin B-12) 1,000 mcg PO DAILY #90 tab 09/29/18 10/05/20 History 1,000 mcg tablet alendronate 70 mg tablet 70 mg PO WEEKLY #12 tab 11/28/19 10/05/20 Rx amlodipine 10 mg tablet 10 mg PO DAILY #90 tab 11/28/19 10/05/20 Rx omeprazole 40 mg capsule,delayed 40 mg PO DAILY #90 cap 03/31/20 10/05/20 Rx release meloxicam 7.5 mg tablet 7.5 mg PO DAILY PRN #30 tab 06/27/20 10/05/20 Rx sertraline 100 mg tablet 200 mg PO DAILY #180 tab 07/25/20 10/05/20 Rx Walking Cane 1 ea .ROUTE .COMPLEX #1 ea 09/18/20 10/05/20 Rx lorazepam 0.5 mg tablet 0.25 mg PO DAILY PRN #30 tab 09/29/20 10/05/20 Rx Past Med/Surg History Medical History Abnormal electrocardiogram Abnormal weight loss Anxiety Arm paresthesia, right Arthralgia of multiple joints Arthritis of hand, left Arthritis of hand, right Arthritis of knee B12 deficiency Back pain, lumbosacral Chronic pain of both knees Depression Depression with anxiety Dyslipidemia Elevated blood pressure reading Fatigue Generalized osteoarthritis of multiple sites GERD (gastroesophageal reflux disease) Hematochezia HTN (hypertension) Myalgia Osteoarthritis of knees, bilateral Osteoporosis Spina bifida occulta Thrombocytopenia Vitamin D deficiency Surgical History H/O breast biopsy 2009 Family History Unknown Hypertension Diabetes Alcoholism Hyperlipidemia Grandfather , AGE 60 COPD (chronic obstructive pulmonary disease) Mother , AGE 70 FIBROSIS No problems noted. Denies family history of Ovarian cancer Prostate cancer Myocardial infarction Breast cancer Colorectal cancer Social History Smoking Status: Never smoker Second Hand Exposure: No; Hx Alcohol Use: No Hx Substance Use: No Preferred Language: Sudanese Communication Ability: Effective Visual Impairment: Limited Hearing Ability: Use of Hearing Aid Hydro Mechanic Required: No Beliefs That Will Affect Care: None marital status: Current Living Situation: Alone current occupational status: retired How many Children do You have: 1 Feels Safe at Home: Yes Childhood Exposure to Second-Hand Smoke: Yes caffeine: Yes (drinks soda once a day ) Dental Care, Regularly: Yes Physical Activity Frequency: Does not Exercise Seatbelt Use: always Sunscreen Use: No (doesn't go in the sun ) Assistive Devices: Hearing Aid - Bilateral Review of Systems All systems reviewed & are unremarkable except as noted in HPI & below. Physical Exam On physical examination of the left hip, the left leg is shortened and externally rotated. She has pain with any range of motion of the left hip. There are no abrasions, lesions, or lacerations of the skin.. Constitutional WD/WN, vitals as above Eyes PERRL, conjunctivae normal, anicteric sclerae ENMT external ear and nose normal, oropharynx normal Neck trachea midline, no thyromegaly Respiratory normal respiratory effort Cardiovascular RRR, no murmur, no edema Gastrointestinal (Abdomen) normal bowel sounds, soft, nontender, no hepatosplenomegaly Psychiatric A+Ox3, euthymic affect Results & Data Results & Data Laboratory Results . Diagnostic Findings X-rays of the left hip do show an intratrochanteric hip fracture. I will see any significant arthritis.. PG Care Time/CCT Total # of Minutes Spent Total Time Spent with Patient: Total time spent is greater than 50% in coordination of care (as documented) at patient's floor/unit and/or counseling patient: Coding Level of Care Code 43985 Inpt Consult Level 4 (57 - DECISION FOR SURGERY) Diagnoses Closed fracture of left hip S72.002A Encounter type: initial encounter (1) Closed fracture of left hip Encounter type: initial encounter Qualified Code(s): S72.002A - Fracture of unspecified part of neck of left femur, initial encounter for closed fracture
[2020-10-06] MEDS: SERTRALINE HCL 100 MG TABLET PO SCH (08:06)
[2020-10-06] MEDS: amLODIPine BESYLATE 5 MG TAB PO SCH (08:06)
[2020-10-06] MEDS ORDERED: FAMOTIDINE 20 MG in SYRINGE 3 ML IV SCH (09:00)
--- NOTE | 2020-10-06 09:08 | XRay Report ---
XR femur LT 2V routine, XR hip LT 2V w pelvis CLINICAL HISTORY: fall, pain. Left hip pain. COMPARISON STUDY: None. FINDINGS: Comminuted and mildly displaced intertrochanteric fracture within the proximal left femur. No dislocation. The mid to distal left femur, pelvic bones, and right hip appear intact. Soft tissue swelling within the left lateral hip. IMPRESSION: Comminuted and mildly displaced intertrochanteric fracture within the proximal left femu r. ACT 112: Negative or not required by law. Electronically signed by: Rashi Dawn M.D. 10/06/2020 9:07 AM
--- NOTE | 2020-10-06 09:11 | XRay Report ---
XR chest 1V portable CLINICAL HISTORY: hip fx COMPARISON STUDY: No previous studies for comparison. FINDINGS: No pneumothorax. No pleural effusion. No large infiltrates or consolidative lesions are seen. Cardiomediastinal silhouette is within normal limits in size. No significant pulmonary vascular congestion.. Aorta is tortuous and calcified. Osseous structures: Diffuse osteopenia. Degenerative changes of the spine. IMPRESSION: 1. No acute pulmonary process. ACT 112: Negative or not required by law. The above report was generated using voice recognition software. It may contain grammatical, syntax o r spelling errors. Electronically signed by: Gela Burns DO 10/06/2020 9:10 AM
--- NOTE | 2020-10-06 11:59 | Anesthesiology Consultation ---
Date of Service October 06, 2020 Assessment & Plan Chart Review Chart Review: Acceptable Risk for Surgery, Patient NOT seen in Pre Admission Testing and Acceptable Risk for Labor Epidural Consults Requested none ASA ASA4 Proposed Anesthesia Anesthesia Type: General History Surgery Operation Date: 10/06/20 09:40 Proposed Procedures p Left Hip Short Intermedullary Nailing - Flaco Young, Height/Weight Height: 5 ft Weight: 60.8 kg Allergies Allergy/AdvReac Type Severity Reaction Status Date / Time No Known Drug Allergies Allergy Unknown . Verified 09/18/20 13:28 Medications Home Medications Medication Instructions Recorded Confirmed Last Taken calcium carbonate 600 mg calcium 600 mg PO DAILY #1 tab 09/29/18 10/05/20 Unknown (1,500 mg) tablet cholecalciferol (vitamin D3) 25 2,000 units PO DAILY tab 09/29/18 10/05/20 Unknown mcg (1,000 unit) tablet cyanocobalamin (vitamin B-12) 1,000 mcg PO DAILY #90 tab 09/29/18 10/05/20 Unknown 1,000 mcg tablet alendronate 70 mg tablet 70 mg PO WEEKLY #12 tab 11/28/19 10/05/20 Unknown amlodipine 10 mg tablet 10 mg PO DAILY #90 tab 11/28/19 10/05/20 Unknown omeprazole 40 mg capsule,delayed 40 mg PO DAILY #90 cap 03/31/20 10/05/20 Unknown release meloxicam 7.5 mg tablet 7.5 mg PO DAILY PRN #30 tab 06/27/20 10/05/20 Unknown sertraline 100 mg tablet 200 mg PO DAILY #180 tab 07/25/20 10/05/20 Unknown Walking Cane 1 ea .ROUTE .COMPLEX #1 ea 09/18/20 10/05/20 Unknown lorazepam 0.5 mg tablet 0.25 mg PO DAILY PRN #30 tab 09/29/20 10/05/20 Unknown Active Medications Generic Name Dose Route Start Last Admin Trade Name Freq PRN Reason Stop Dose Admin Amlodipine Besylate 10 mg 10/06/20 09:00 10/06/20 08:06 Amlodipine Besylate 5 Mg Tab PO 11/05/20 08:59 10 mg DAILY SCOT Administration Famotidine 20 mg/ Syringe 5 mls @ 2.5 mls/min 10/06/20 09:00 10/06/20 08:06 IV 11/05/20 08:59 2.5 mls/min DAILY SCOT Administration Sertraline HCl 200 mg 10/06/20 09:00 10/06/20 08:06 Sertraline Hcl 100 Mg Tablet PO 11/05/20 08:59 200 mg DAILY SCTO Administration Past Medical History Medical History Abnormal electrocardiogram Abnormal weight loss Anxiety Arm paresthesia, right Arthralgia of multiple joints Arthritis of hand, left Arthritis of hand, right Arthritis of knee B12 deficiency Back pain, lumbosacral Chronic pain of both knees Depression Depression with anxiety Dyslipidemia Elevated blood pressure reading Fatigue Generalized osteoarthritis of multiple sites GERD (gastroesophageal reflux disease) Hematochezia HTN (hypertension) Myalgia Osteoarthritis of knees, bilateral Osteoporosis Spina bifida occulta Thrombocytopenia Vitamin D deficiency Exercise / Class Metabolic Activity III < 4 Walking/Shop/Light housework Past Family History Family History Unknown Hypertension Diabetes Alcoholism Hyperlipidemia Grandfather , AGE 60 COPD (chronic obstructive pulmonary disease) Mother , AGE 70 FIBROSIS No problems noted. Denies family history of Ovarian cancer Prostate cancer Myocardial infarction Breast cancer Colorectal cancer Past Surgical History Surgical History H/O breast biopsy 2009 Past Anesthesia History No Hx of Anesthesia Complications and No Family Hx of Anesthesia Complications History of PONV No Hx of PONV and No Hx of Motion Sickness Social History Smoking Status: Never smoker Hx Alcohol Use: No Hx Substance Use: No Physical Exam Vital Signs Last Vital Signs Temp 36.6 C 10/06/20 07:19 Pulse 77 10/06/20 07:19 Resp 18 10/06/20 07:19 BP 162/69 H 10/06/20 07:19 Pulse Ox 97 10/06/20 07:19 Testing Laboratory Results 10/05/20 22:48 10/05/20 22:48 PT 9.7 Seconds (9.0-12.0) 10/05/20 22:48 INR 1.0 (0.9-1.1) 10/05/20 22:48 APTT 23.2 Seconds (21.0-31.0) 10/05/20 22:48 Blood Type O Positive 10/05/20 23:31 Antibody Screen NEGATIVE 10/05/20 23:31 Electrocardiogram Date: 10/05/20 Findings: + NSR @ (at 75;inferior infarct,age ?) Chest X-Ray Date: 10/05/20 Findings: + NAD
[2020-10-06] MEDS ORDERED: PROPOFOL IV EMULSION 10 MG/ML 20 ML VIAL IV ONE (12:15)
[2020-10-06] MEDS ORDERED: DEXAMETHASONE SOD INJ 4 MG/ML VIAL ONE (12:15)
[2020-10-06] MEDS ORDERED: ONDANSETRON INJ 2 MG/ML 2 ML VIAL ONE (12:15)
[2020-10-06] MEDS ORDERED: fentaNYL citrate 100 MCG/2 ML VIAL ONE (12:16)
[2020-10-06] MEDS ORDERED: ceFAZolin 2000MG 2,000 MG/15 ML SYR IV ONE (12:59)
[2020-10-06] MEDS ORDERED: ceFAZolin 2,000 MG/15 ML IV PUSH IV ONE (13:00)
[2020-10-06] MEDS ORDERED: ONDANSETRON INJ 2 MG/ML 2 ML VIAL IV STA (13:18)
[2020-10-06 13:26] LABS: Appearance Urine Clear (Clear); Bacteria Urine Automated 2+ (Negative); Bilirubin Urine Negative (Negative); Blood Urine 1+ (Negative); Cast Urine Automated 0 /lpf (0-5); Color Urine Yellow; Glucose Urine UA 1+ (Negative); Ketones Urine Trace (Negative); Leukocyte Esterase Urine 2+ (Negative); Nitrite Urine Negative (Negative); Protein Urine 1+ (Negative); Urobilinogen Urine Negative (Negative); WBC Urine Automated >30 /hpf (0-5)
[2020-10-06] MEDS ORDERED: BUPIVACAINE/EPINEPHRINE 0.5% MPF 1:200,000 30 ML VIAL ONE (13:29)
[2020-10-06] MEDS ORDERED: LIDOCAINE 2% 2 ML VIAL/AMP(20MG/ML) INFIL ONE (13:55)
[2020-10-06] MEDS ORDERED: SUCCINYLCHOLINE CHLORIDE 20 MG/ML 10 ML VIAL IV ONE (13:55)
[2020-10-06] MEDS ORDERED: ePHEDrine sulfate 50 MG/ML AMP IV PRN (14:05)
[2020-10-06] MEDS ORDERED: fentaNYL citrate 100 MCG/2 ML VIAL IV PRN (14:05)
[2020-10-06] MEDS ORDERED: FLUMAZENIL 0.1 MG/1 ML 10 ML VIAL IV PRN (14:05)
[2020-10-06] MEDS ORDERED: PROMETHAZINE HCL 12.5 MG in SODIUM CHLORIDE 0.9% 50 ML IV PRN (14:05)
[2020-10-06] MEDS ORDERED: ATROPINE SULFATE 0.1 MG/ML 10ML SYR IV PRN (14:05)
[2020-10-06] MEDS ORDERED: LABETALOL HCL IV 5 MG/ML 20ML IV PRN (14:05)
[2020-10-06] MEDS ORDERED: ePHEDrine sulfate 50 MG/ML AMP ONE (14:08)
--- NOTE | 2020-10-06 14:47 | Operative Report ---
PG Post Operative Report Pre & Post Diagnosis Operation Date: 10/06/20 09:40 Pre-Op Diagnosis: Comminuted intertrochanteric fracture of the left hip Post-Op Diagnosis: Comminuted intratrochanteric fracture of the left hip I identified the patient and participated in the time-out.: Yes Procedure Operation Date: 10/06/20 09:40 Actual Procedures p Left Hip Intermedullary Nailing(Left) - Flaco Young DO Surgeon Flaco Young DO Digital Solution Architect Flaco Marr PAC Estimated Blood Loss 100 Findings Consistent with Post-Op Diagnosis Specimens None Complications none Disposition Disposition: Recovery Room Indications Mirna is a pleasant 85-year-old female who ambulates with a cane and lives alone. She missed a step and fell yesterday onto her left hip. She had a comminuted intertrochanteric fracture of her left hip. She was admitted to the hospital and orthopedics was consulted. After discussions at bedside, she elected proceed with intramedullary nail fixation of the left hip. Description of Procedure On October 06, 2020 Mirna was brought down from her hospital room to the preoperative holding area. The operative extremity identified and signed. She was given a preoperative antibiotic. She was taken back to the operating room and laid on a fracture table in supine position. She was put under general anesthesia. The left leg was brought to traction. The left hip was prepped and draped in sterile fashion. A timeout was done. The patient and the operative extremity was properly identified. Fluoroscopy was brought in. Unfortunately it was a comminuted fracture of the intertrochanteric region. There was a reverse obliquity and impaction of the basicervical region. I decided the best treatment would be a intramedullary nail. An incision was made superior to the greater trochanter and dissection was taken down through the fascia and the tip of the greater trochanter was exposed. Incision was then made in the area of the lesser trochanter and dissection was taken down through the IT band. A bone hook and a clamp were used to reduce the fracture. I was able to get a good reduction of the femoral shaft there was still impaction of the basicervical region. I felt that at this position the fracture was basically stable. A guidepin was placed down the center of the femoral canal. Appropriate placement the guidepin was checked on orthogonal fluoroscopic images. A 17 mm opening reamer was then used. The femoral canal was then reamed up to a 12.5 mm reamer. An 11 mm Synthes short intramedullary nail was then impacted into place. A outrigger was placed and the cannula was advanced for the lag screw. A guidepin was then placed into the center center position of the femoral head and the helical blade was drilled. An 80 mm helical blade was then impacted into place. The blade was then locked. A single distal locking screw was placed. I was able to get excellent purchase with the screw. The wounds were then irrigated and the outrigger was removed. Fluoroscopic images showed near anatomic alignment of the fracture. This was a comminuted fracture and there is still some impaction of the base of the femoral neck. The deep fascial layer was closed with #1 Vicryl suture. Skin was closed with 2-0 Vicryl and brie. She was then placed in a soft dressing. She was then extubated and transferred to a hospital bed. She was taken to the postanesthesia care unit in stable condition. She tolerated the procedure well. Flaco aMrr PA-C, was present for the entire procedure. He was critical for patient positioning, prepping, draping, retraction exposure, wound closure and application of sterile dressing. I attest to the content of the Intraoperative Record and any orders documented therein. Any exceptions are noted below.
--- NOTE | 2020-10-06 14:53 | Fluoroscopy Report ---
FL hip LT 1V CLINICAL HISTORY: LEFT TROCHNAIL. Left hip fracture. COMPARISON STUDY: Left hip 10/05/2020. FLUOROSCOPY TIME: 88 seconds. FINDINGS: 3 fluoroscopic spot image of the left hip demonstrate internal fixation of the left femoral intertrochanteric fracture with a proximal intramedullary silverio and interlocking femoral neck pin. The re is improved anatomic alignment. No dislocation. The hardware appears intact. IMPRESSION: Fluoroscopy provided for internal fixation of a left femoral intertrochanteric fracture. ACT 112: Negative or not required by law. Electronically signed by: Rashi Dawn M.D. 10/06/2020 2:52 PM
--- NOTE | 2020-10-06 14:56 | Hospitalist Progress Note ---
Date of Service October 06, 2020 Assessment & Plan (1) Closed left hip fracture: * for OR today for IM nailing * Will initiate diet postoperatively * Will need incentive spirometry, continued perioperative antibiotic prophylaxis, PT/OT and DVT prophylaxis initiated postoperatively * If Ortho does not initiate DVT prophylaxis, will start Xarelto on POD #1 (10 mg daily, given increased risk of DVT/PE due to fracture). * Disposition at this time is unclear. Will depend on postop PT/OT eval * Plan is to transition IV to p.o. pain medication postoperatively (2) HTN (hypertension): * Continue Norvasc. (3) Depression with anxiety: * Continue Sertraline 200mg daily * Continue Ativan PRN (4) GERD (gastroesophageal reflux disease): * Chronic. Well controlled. * Continue Omeprazole Plan of care will be discussed with Dr. Perales. Further orders as warranted. Admission and Anticipated Discharge Date Admission Date: October 06, 2020 Subjective Mrs. Chopra was seen on daily rounds today. She is an 85-year-old white female with a past medical history of HTN, GERD, HLD, and depression. She sustained a ground-level fall resulting in a closed left hip fracture and was subsequently admitted with plan for OR today for IM nailing. Her preoperative lab data was unremarkable including an H&H of 13.6 and 41.4 and a negative Covid test. Patient does live alone in a two-story home with 13 steps. Typically uses a cane for ambulation. Disposition at this time is unclear. When seen preoperatively, her pain was adequately controlled. No ill effects to pain medication regimen. Review of Systems Review of Systems: Denies fevers, chills, headache, nasal congestion, sore throat, cough, chest pain, shortness of breath, abdominal pain, nausea, vomitin g, GI/ symptomatology, or uncontrolled hip pain Physical Exam Physical Exam: General: Resting comfortably in her hospital bed. Hard of hearing but A&O X3 NAD. Cardiac: RRR without M/G/R Lungs: CTA without W/R/R Abdomen: Normoactive X4. Soft and nontender in all quadrants. Extremities: Left lower extremity is externally rotated and shortened. Peripheral pulses including dorsalis pedis and posterior tibialis are intact and symmetrical bilaterally. Capillary refill +2. Negative Lisa sign. Results & Data Results & Data ([facility]) Vital Signs (Past 12 Hours) Vital Signs Temp Pulse Resp BP Pulse Ox 10/06/20 12:51 36.7 C 88 18 154/76 H 96 10/06/20 07:19 36.6 C 77 18 162/69 H 97 Laboratory Results 10/05/20 22:48 10/05/20 22:48 Diagnostic Findings CXR done 10/05/2020: No acute cardiopulmonary process X-ray of left femur: IMPRESSION: Comminuted and mildly displaced intertrochanteric fracture within the proximal left femur. PG Care Time/CCT Total # of Minutes Spent Total Time Spent with Patient: Total time spent is greater than 50% in coordination of care (as documented) at patient's floor/unit and/or counseling patient: [place] [address] Subseq Hosp Care Lvl 1 Patient Type Established History Problem Focused Exam Expanded Problem Focused Medical Decision Making Low Complexity Diagnoses Closed left hip fracture S72.002A Encounter type: initial encounter HTN (hypertension) I10 Hypertension type: primary hypertension Depression with anxiety F41.8 GERD (gastroesophageal reflux disease) K21.9 Esophagitis presence: esophagitis presence not specified (1) Closed left hip fracture Encounter type: initial encounter Qualified Code(s): S72.002A - Fracture of unspecified part of neck of left femur, initial encounter for closed fracture (2) HTN (hypertension) Hypertension type: primary hypertension Qualified Code(s): I10 - Essential (primary) hypertension (3) GERD (gastroesophageal reflux disease) Esophagitis presence: esophagitis presence not specified Qualified Code(s): K21.9 - Gastro-esophageal reflux disease without esophagitis
--- NOTE | 2020-10-06 15:54 | Anesthesiology Progress Note ---
Date of Service October 06, 2020 Anesthesia Post Procedure Vital Signs Vital Signs: Temp Pulse Pulse Pulse Resp BP BP 10/06/20 15:40 36.7 C 87 16 154/69 H 10/06/20 15:30 90 16 156/71 H 10/06/20 15:20 86 16 162/73 H 10/06/20 15:10 86 20 163/75 H 10/06/20 15:04 36 C L 89 14 144/76 H 10/06/20 12:51 36.7 C 88 18 154/76 H 10/06/20 07:19 36.6 C 77 18 162/69 H 10/06/20 02:02 36.5 C 81 16 192/75 H 10/06/20 01:50 36.5 C 81 16 192/75 H 10/06/20 01:30 77 18 134/58 L 10/06/20 01:00 74 19 138/63 10/06/20 00:30 71 17 141/61 H 10/06/20 00:00 75 19 146/63 H 10/05/20 23:32 80 24 149/70 H 10/05/20 22:41 80 23 198/73 H 10/05/20 22:40 36.7 C 73 18 198/73 H Pulse Ox 10/06/20 15:40 94 10/06/20 15:30 93 10/06/20 15:20 98 10/06/20 15:10 100 10/06/20 15:04 100 10/06/20 12:51 96 10/06/20 07:19 97 10/06/20 02:02 95 10/06/20 01:50 95 10/06/20 01:30 93 10/06/20 01:00 94 10/06/20 00:30 94 10/06/20 00:00 94 10/05/20 23:32 94 10/05/20 22:41 93 10/05/20 22:40 95 Pain Intensity Left Hip: Pain Intensity: 8 Transfer of Care Handoff Completed per policy Notes Mental Status: alert / awake / arousable Patient Amnestic to Procedure: Yes Nausea / Vomiting: adequately controlled Pain: adequately controlled Airway Patency, RR, SpO2: stable & adequate BP & HR: stable & adequate Hydration State: stable & adequate Anesthetic Complications: no major complications apparent
[2020-10-06] MEDS ORDERED: HYDROmorphone INJ 0.5 MG/0.5 ML SYR IV PRN (16:02)
[2020-10-06] MEDS ORDERED: METOCLOPRAMIDE HCL INJ 5 MG/ML 2 ML VIAL IV PRN (16:02)
[2020-10-06] MEDS: SODIUM CHLORIDE 0.9% 1000ML 1,000 ML IV SCH (16:30)
--- NOTE | 2020-10-06 17:25 | Electrocardiogram Report ---
Test Reason : Blood Pressure : / mmHG Vent. Rate : 077 BPM Atrial Rate : 077 BPM P-R Int : 170 ms QRS Dur : 092 ms QT Int : 414 ms P-R-T Axes : 056 007 071 degrees QTc Int : 468 ms Poor data quality, interpretation may be adversely affected Normal sinus rhythm Possible Inferior infarct , age undetermined Cannot rule out Anterior infarct , age undetermined Abnormal ECG No previous ECGs available Confirmed by Aaron Cruz ([id number]) on 10/06/2020 5:25:15 PM Referred By: REFERRED SELF Confirmed By:Aaron Cruz
[2020-10-06] MEDS ORDERED: DOCUSATE SODIUM/SENNA 50/8.6MG TAB PO SCH (21:00)
[2020-10-06] MEDS: DOCUSATE SODIUM 100 MG CAP PO SCH (21:11)
[2020-10-06] MEDS: ceFAZolin 2000MG 2,000 MG/15 ML SYR IV SCH (21:11)
[2020-10-06] MEDS: SENNA 8.6 MG TAB PO SCH (21:12)
[2020-10-06] MEDS: ACETAMINOPHEN 500 MG TAB PO SCH (21:12)
[2020-10-07] MEDS: SODIUM CHLORIDE 0.9% 1000ML 1,000 ML IV SCH (03:00)
[2020-10-07] MEDS: ACETAMINOPHEN 500 MG TAB PO SCH ×3 (05:12→21:39)
[2020-10-07] MEDS: ceFAZolin 2000MG 2,000 MG/15 ML SYR IV SCH (05:13)
[2020-10-07 06:05] LABS: Basophils # (auto) 0.01 K/uL (0-0.2); Basophils % (auto) 0.1 %; Hematocrit (blood only) 26.4 % (37-47); Hemoglobin 8.7 g/dL (12.0-16.0); Immature Granulocytes # (auto) 0.02 K/uL (0.00-0.02); Immature Granulocytes % (auto) 0.3 %; Lymphocytes # (auto) 1.03 K/uL (1.2-3.4); Lymphocytes % (auto) 13.1 %; Mean Corpuscular Hemoglobin 29.7 pg (25-34); Mean Corpuscular Volume 90.1 fL (80-100); Mean Platelet Volume 9.1 fL (7.4-10.4); Monocytes # (auto) 0.91 K/uL (0.11-0.59); Monocytes % (auto) 11.6 %; Neutrophils % (auto) 74.9 %; Platelet Count 190 K/uL (130-400); RDW Coefficient of Variation 14.1 % (11.5-14.5); RDW Standard Deviation 46.5 fL (36.4-46.3); Red Blood Count 2.93 M/uL (4.2-5.4); White Blood Count 7.87 K/uL (4.8-10.8)
[2020-10-07 06:35] LABS: BUN Creatinine Ratio 27.1 (10-20); Calcium 7.7 mg/dl (8.5-10.1); Creatinine Clr Calc Pharmacy 47.5 ml/min; Est GFR (African American) 91.2 ml/min; Est GFR (Non-African American) 78.6 ml/min; Magnesium 1.9 mg/dl (1.8-2.4); Potassium 4.3 mmol/L (3.5-5.1)
--- NOTE | 2020-10-07 06:48 | Orthopedic Progress Note ---
Date of Service October 07, 2020 Assessment & Plan (1) Closed fracture of left hip: Overall she is doing fairly well. She is not in too much pain in the left hip. We will keep her on Xarelto 10 mg daily for DVT prophylaxis for up to 6 weeks. She will be touch toe weightbearing on the left hip. The surgery went well but the fracture was very comminuted and I want to give a little bit more time for the fractures to heal around the implant before we start full weightbearing. She is orthopedically stable for discharge when medically ready. Full orthopedic discharge instructions were placed in the discharge summary. She can follow-up with orthopedics in 2 weeks. Joseph Bradley was seen and examined at bedside this morning. Overall she is doing fairly well. She is noted much pain in the left hip. She had no acute events overnight and has no complaints.. Review of Systems All systems reviewed & are unremarkable except as noted in HPI & below. Physical Exam On physical examination of the left hip, the dressing is clean and dry. Her leg lengths are equal.. Results & Data Results & Data Laboratory Results . Diagnostic Findings . PG Care Time/CCT Total # of Minutes Spent Total Time Spent with Patient: Total time spent is greater than 50% in coordination of care (as documented) at patient's floor/unit and/or counseling patient: Coding Level of Care Code 32698 Post Operative Follow-Up Diagnoses Closed fracture of left hip S72.002A Encounter type: initial encounter (1) Closed fracture of left hip Encounter type: initial encounter Qualified Code(s): S72.002A - Fracture of unspecified part of neck of left femur, initial encounter for closed fracture
[2020-10-07] MEDS ORDERED: dexAMETHasone 4 MG TAB PO SCH (08:00)
[2020-10-07] MEDS: amLODIPine BESYLATE 5 MG TAB PO SCH (08:33)
[2020-10-07] MEDS: MULTIVITAMIN TAB PO SCH (08:34)
[2020-10-07] MEDS: DOCUSATE SODIUM 100 MG CAP PO SCH ×2 (08:34→20:27)
[2020-10-07] MEDS: SERTRALINE HCL 100 MG TABLET PO SCH (08:36)
[2020-10-07] MEDS ORDERED: PANTOprazole 40 MG TAB PO SCH (09:00)
[2020-10-07] MEDS ORDERED: RIVAROXABAN 10 MG TABLET PO SCH (09:00)
[2020-10-07] MEDS ORDERED: HYDROmorphone INJ 0.5 MG/0.5 ML SYR IV PRN (12:13)
--- NOTE | 2020-10-07 13:06 | Hospitalist Progress Note ---
Date of Service October 07, 2020 Assessment & Plan (1) Closed left hip fracture: * S/p IM nailing left hipPOD #1 * Currently controlled. Patient not taking anything for pain. Encouraged her to "not be here out" and use pain medication (other than scheduled Tylenol) if needed especially before therapy services. * Continue incentive spirometry, PT/OT and DVT prophylaxis (Xarelto 10 mg daily on board. Recommend continue to use x30 to 35 days) * Disposition at this time is unclear. Will depend on postop PT/OT eval. Suspect may need placement to SNF for inpatient rehab (2) Anemia: * Will monitor H&H. If drops less than 8.0 or patient becomes sympt omaticwe will transfuse * Will give IV Venofer today and likely tomorrow with plan for oral iron sup plementation X 30 days * we will continue to trend (3) HTN (hypertension): * Acceptable control * Continue Norvasc. (4) Depression with anxiety: * Continue Sertraline 200mg daily * Continue Ativan PRN (5) GERD (gastroesophageal reflux disease): * Chronic. Well controlled. * Continue Omeprazole Plan of care will be discussed with Dr. Perales. Further orders as warranted. Disposition: Continue acute stay with. ? Discharge to SNF for inpatient rehab versus home with home services (based on PT/OT eval) Case management on board. Admission and Anticipated Discharge Date Admission Date: October 06, 2020 Subjective Patient seen on daily rounds today. She is POD#1, s/p IM nailing of the Left Hip. Had an uneventful perioperative course. Today, slight drop in hgb (8.7- was 13.6 preoperatively). Denies dizziness, lightheadedness, CP, palpitations, SOB. No inwelling drains to left hip/no hemovac. No excessive bleeding/drainage from the hip. Pain is adequately controlled. Has not been taking anything for pain. Patient is passing flatus. No BM. Still with rasheed catheter. denies abd pain, N/V. Her concern is disposition- live alone in a 2 story home witn 12 steps. Review of Systems Review of Systems: Denies fevers, chills, dizziness, lightheadedness, headache, nasal congestion, sore throat, cough, chest pain, shortness of breath, abdominal pain, nausea, vomiting, GI/ symptomatology, or uncontrolled joint pain. Physical Exam Physical Exam: General: Resting comfortably in her hospital bed. A&O X3 NAD. Cardiac: RRR 3/6 holosystolic murmur Lungs: CTA without W/R/R Abdomen: Normoactive X4. Soft and nontender in all quadrants. Extremities: Left hip without indwelling drains. Surgical dressing dry and intact. No peripheral clubbing cyanosis or edema. Dorsalis pedis and posterior tibialis pulses are intact and symmetrical bilaterally. Capillary refill +2. Negative Homans' sign. No calf tenderness. Results & Data Results & Data ([facility]) Vital Signs (Past 12 Hours) Vital Signs Temp Pulse Pulse Resp BP Pulse Ox 10/07/20 11:10 36.7 C 78 13 136/64 95 10/07/20 07:37 36.5 C 79 13 131/67 10/07/20 02:57 36.9 C 83 16 127/66 95 Laboratory Results 10/07/20 05:27 10/07/20 05:27 PG Care Time/CCT Total # of Minutes Spent Total Time Spent with Patient: Total time spent is greater than 50% in coordination of care (as documented) at patient's floor/unit and/or counseling patient: Coding [place] [address] Subseq Hosp Care Lvl 2 Patient Type Established History Expanded Problem Focused Exam Expanded Problem Focused Medical Decision Making Moderate Complexity Diagnoses Closed left hip fracture S72.002A Encounter type: initial encounter Anemia D64.9 Anemia type: other cause HTN (hypertension) I10 Hypertension type: primary hypertension Depression with anxiety F41.8 GERD (gastroesophageal reflux disease) K21.9 Esophagitis presence: esophagitis presence not specified (1) GERD (gastroesophageal reflux disease) Esophagitis presence: esophagitis presence not specified Qualified Code(s): K21.9 - Gastro-esophageal reflux disease without esophagitis (2) HTN (hypertension) Hypertension type: primary hypertension Qualified Code(s): I10 - Essential (primary) hypertension (3) Closed left hip fracture Encounter type: initial encounter Qualified Code(s): S72.002A - Fracture of unspecified part of neck of left femur, initial encounter for closed fracture (4) Anemia Anemia type: other cause
[2020-10-07] MEDS ORDERED: IRON SUCROSE 300 MG in SODIUM CHLORIDE 0.9% 250 ML IV ONE (14:00)
[2020-10-07 17:00] LABS: Hemoglobin 8.7 g/dL (12.0-16.0)
[2020-10-07] MEDS: SENNA 8.6 MG TAB PO SCH (21:38)
[2020-10-08] MEDS: ACETAMINOPHEN 500 MG TAB PO SCH ×3 (05:57→22:14)
[2020-10-08 06:43] LABS: Basophils # (auto) 0.01 K/uL (0-0.2); Basophils % (auto) 0.2 %; Eosinophils # (auto) 0.01 K/uL (0-0.5); Eosinophils % (auto) 0.2 %; Hematocrit (blood only) 23.6 % (37-47); Hemoglobin 7.5 g/dL (12.0-16.0); Immature Granulocytes # (auto) 0.03 K/uL (0.00-0.02); Immature Granulocytes % (auto) 0.5 %; Lymphocytes # (auto) 0.68 K/uL (1.2-3.4); Lymphocytes % (auto) 11.8 %; Mean Corpuscular Hemoglobin 29.4 pg (25-34); Mean Corpuscular Hgb Conc 31.8 g/dL (32-36); Mean Corpuscular Volume 92.5 fL (80-100); Mean Platelet Volume 9.4 fL (7.4-10.4); Monocytes # (auto) 0.64 K/uL (0.11-0.59); Monocytes % (auto) 11.1 %; Neutrophils # (auto) 4.41 K/uL (1.4-6.5); Neutrophils % (auto) 76.2 %; Platelet Count 155 K/uL (130-400); RDW Coefficient of Variation 14.4 % (11.5-14.5); RDW Standard Deviation 48.3 fL (36.4-46.3); Red Blood Count 2.55 M/uL (4.2-5.4); White Blood Count 5.78 K/uL (4.8-10.8)
--- NOTE | 2020-10-08 06:57 | Orthopedic Progress Note ---
Date of Service October 08, 2020 Assessment & Plan (1) Closed fracture of left hip: Overall she seems to be doing fairly well. She can have daily dry dressing changes to her left hip. She will continue to work with physical therapy doing ambulation and range of motion exercises. She will be touch toe weightbearing on the left leg for about 6 weeks. I will see her in my office in 2 weeks for staple removal and x-rays. Full orthopedic discharge instructions were placed in the discharge summary. Joseph Bradley was seen and examined at bedside this morning. Overall she is doing fairly well. She denies any pain in the hip when she is lying still. She was participating well yesterday with physical therapy. She was able to take several steps on her touch toe weightbearing restrictions. She has no new complaints.. Review of Systems All systems reviewed & are unremarkable except as noted in HPI & below. Physical Exam On physical examination of the left hip, the dressing has been changed. Her leg lengths are equal. There is no signs of infection.. Results & Data Results & Data Laboratory Results . Diagnostic Findings . PG Care Time/CCT Total # of Minutes Spent Total Time Spent with Patient: Total time spent is greater than 50% in coordination of care (as documented) at patient's floor/unit and/or counseling patient: Coding Level of Care Code 89614 Post Operative Follow-Up Diagnoses Closed fracture of left hip S72.002A Encounter type: initial encounter (1) Closed fracture of left hip Encounter type: initial encounter Qualified Code(s): S72.002A - Fracture of unspecified part of neck of left femur, initial encounter for closed fracture
[2020-10-08 07:19] LABS: BUN Creatinine Ratio 35.5 (10-20); Calcium 8.3 mg/dl (8.5-10.1); Creatinine Clr Calc Pharmacy 76.9 ml/min; Est GFR (African American) 106.8 ml/min; Est GFR (Non-African American) 92.2 ml/min; Potassium 3.8 mmol/L (3.5-5.1)
[2020-10-08 07:20] LABS: RBC Morphology Unremarkable
[2020-10-08] MEDS: SERTRALINE HCL 100 MG TABLET PO SCH (08:33)
[2020-10-08] MEDS: DOCUSATE SODIUM 100 MG CAP PO SCH ×3 (08:34→21:07)
[2020-10-08] MEDS: MULTIVITAMIN TAB PO SCH (08:34)
[2020-10-08] MEDS: amLODIPine BESYLATE 5 MG TAB PO SCH (08:34)
[2020-10-08] MEDS ORDERED: ACETAMINOPHEN 325 MG TAB PO SCH (08:41)
[2020-10-08] MEDS ORDERED: diphenhydrAMINE Capsule 25 MG CAP PO SCH (08:41)
[2020-10-08] MEDS ORDERED: SODIUM CHLORIDE 0.9% 250 ML IV PRN (08:41)
[2020-10-08] MEDS ORDERED: IRON SUCROSE 300 MG in SODIUM CHLORIDE 0.9% 250 ML IV ONE (09:00)
[2020-10-08] MEDS ORDERED: POLYETHYLENE (MIRALAX) 17 GM PACK PO PRN (13:16)
--- NOTE | 2020-10-08 16:05 | Hospitalist Progress Note ---
Date of Service October 08, 2020 Assessment & Plan (1) Closed left hip fracture: * S/p IM nailing left hipPOD #2 * Pain is adequately controlled * Recommend DVT prophylaxis X 30 to 35 days * Awaiting placement for continued inpatient rehab as patient lives alone (2) Anemia: * Patient experiencing excessive fatigue likely related to her anemia. Given the drop from 13.6-7.5, the associated fatigue, and her postoperative statewe will type and cross and transfuse 2 units of packed cells. Will premedicate with Tylenol/Benadryl. Ideally, hemoglobin should be 9.0 or above in the postoperative state to aid in wound healing. (3) HTN (hypertension): * Acceptable control * Continue Norvasc. (4) Depression with anxiety: * Continue Sertraline 200mg daily * Continue Ativan PRN (5) GERD (gastroesophageal reflux disease): * Chronic. Well controlled. * Continue Omeprazole Plan of care will be discussed with Dr. Perales. Further orders as warranted. Disposition: Continue acute stay-- awaiting placement to SNF. Case mgmt on board Admission and Anticipated Discharge Date Admission Date: October 06, 2020 Subjective Patient seen on daily rounds today. H&H has since dropped to 7.5/23.6 respectively. Patient is complaining of excessive fatigue but otherwise denies shortness of breath, dyspnea on exertion, chest pain, dizziness/lightheadedness. She has been hemodynamically stable (not hypotensive or tachycardic). She denies fevers, chills, chest pain, shortness of breath, abdominal pain, nausea, vomiting, GI/ symptomatology. Is passing flatus but has yet to have a BM. Nursing voices no complaints or concerns. Review of Systems Review of Systems: Reports fatigue but otherwise denies fevers, chills, headache, nasal congestion, sore throat, cough, chest pain, shortness of breath, abdominal pain, nausea, vomiting, GI/ symptomatology. Physical Exam Physical Exam: General: Resting comfortably in her bedside chair. A&O X3 NAD. Cardiac: RRR with 2/6 LOS Lungs: CTA without W/R/R Abdomen: Normoactive X4. Soft and nontender in all quadrants. Extremities: Distal pulses of the bilateral lower extremities are intact and symmetrical. Capillary refill +2. Negative Homans' sign. No calf tenderness. Surgical dressing to left hip dry and intact Results & Data Results & Data ([facility]) Vital Signs (Past 12 Hours) Vital Signs Temp Pulse Pulse Resp BP BP Pulse Ox 10/08/20 15:45 36.7 C 81 16 130/65 95 10/08/20 15:15 36.7 C 77 18 122/57 L 94 10/08/20 14:47 36.7 C 79 16 122/58 L 95 10/08/20 14:45 36.7 C 79 16 122/58 L 95 10/08/20 14:13 36.8 C 77 16 122/58 L 10/08/20 13:40 36.8 C 80 18 111/58 L 92 10/08/20 12:43 36.7 C 79 18 135/61 99 10/08/20 11:44 36.8 C 73 16 124/63 95 10/08/20 11:15 36.8 C 72 18 110/55 L 96 10/08/20 10:45 36.9 C 76 18 106/54 L 96 10/08/20 10:31 36.9 C 76 18 106/54 L 96 10/08/20 10:30 36.8 C 75 18 113/60 10/08/20 10:11 36.9 C 81 16 111/57 L 97 10/08/20 07:12 36.9 C 84 16 117/64 95 Laboratory Results 10/08/20 05:23 10/08/20 05:23 PG Care Time/CCT Total # of Minutes Spent Total Time Spent with Patient: Total time spent is greater than 50% in coordination of care (as documented) at patient's floor/unit and/or counseling patient: Coding [place] [address] Subseq Hosp Care Lvl 2 Patient Type Established History Expanded Problem Focused Exam Expanded Problem Focused Medical Decision Making Moderate Complexity Diagnoses Closed left hip fracture S72.002A Encounter type: initial encounter Anemia D64.9 Anemia type: other cause HTN (hypertension) I10 Hypertension type: primary hypertension Depression with anxiety F41.8 GERD (gastroesophageal reflux disease) K21.9 Esophagitis presence: esophagitis presence not specified (1) Anemia Anemia type: other cause (2) GERD (gastroesophageal reflux disease) Esophagitis presence: esophagitis presence not specified Qualified Code(s): K21.9 - Gastro-esophageal reflux disease without esophagitis (3) HTN (hypertension) Hypertension type: primary hypertension Qualified Code(s): I10 - Essential (primary) hypertension (4) Closed left hip fracture Encounter type: initial encounter Qualified Code(s): S72.002A - Fracture of u nspecified part of neck of left femur, initial encounter for closed fracture
[2020-10-08] MEDS ORDERED: RIVAROXABAN 10 MG TABLET PO SCH (17:00)
[2020-10-08] MEDS: SENNA 8.6 MG TAB PO SCH ×2 (21:05→21:09)
[2020-10-09 05:58] LABS: Basophils # (auto) 0.03 K/uL (0-0.2); Basophils % (auto) 0.5 %; Eosinophils # (auto) 0.04 K/uL (0-0.5); Eosinophils % (auto) 0.7 %; Hematocrit (blood only) 32.4 % (37-47); Hemoglobin 10.6 g/dL (12.0-16.0); Immature Granulocytes % (auto) 1.7 %; Lymphocytes # (auto) 0.68 K/uL (1.2-3.4); Lymphocytes % (auto) 11.4 %; Mean Corpuscular Hemoglobin 28.9 pg (25-34); Mean Corpuscular Hgb Conc 32.7 g/dL (32-36); Mean Corpuscular Volume 88.3 fL (80-100); Mean Platelet Volume 9.1 fL (7.4-10.4); Monocytes # (auto) 0.56 K/uL (0.11-0.59); Monocytes % (auto) 9.4 %; Neutrophils # (auto) 4.57 K/uL (1.4-6.5); Neutrophils % (auto) 76.3 %; Platelet Count 155 K/uL (130-400); RDW Coefficient of Variation 15.3 % (11.5-14.5); RDW Standard Deviation 49.1 fL (36.4-46.3); Red Blood Count 3.67 M/uL (4.2-5.4); White Blood Count 5.98 K/uL (4.8-10.8)
[2020-10-09] MEDS: ACETAMINOPHEN 500 MG TAB PO SCH ×2 (06:14→13:03)
[2020-10-09 06:23] LABS: Calcium 8.3 mg/dl (8.5-10.1); Est GFR (African American) 110.4 ml/min; Est GFR (Non-African American) 95.2 ml/min; Potassium 3.7 mmol/L (3.5-5.1)
[2020-10-09] MEDS: amLODIPine BESYLATE 5 MG TAB PO SCH (07:25)
[2020-10-09] MEDS: DOCUSATE SODIUM 100 MG CAP PO SCH (07:25)
[2020-10-09] MEDS: SERTRALINE HCL 100 MG TABLET PO SCH (07:25)
[2020-10-09] MEDS: MULTIVITAMIN TAB PO SCH (07:25)
--- NOTE | 2020-10-09 14:36 | Discharge Summary ---
Date of Service October 09, 2020 Admission HPI Per Admitting Provider Mirna Chopra is a pleasant 85yo female with history of HTN, HLP and GERD presenting with left hip fracture. Patient lives alone and is independent, ambulates with a cane at baseline. She was walking up stairs to her home this evening when she lost her balance and fell backward. She landed on her buttocks then rolled onto her back and lightly bumped the back of her head. She had no LOC, no chest pain/palpitations/dizziness. She was unable to bear weight on her left leg. No additional complaints at this time. She denies chest pain, palpitations, cough, SOB, nausea, vomiting, diarrhea or constipation. Presently pain is well controlled after receiving Morphine in ER. ER Course: Tylenol, Morphine Admission Exam Per Admitting Provider General: patient resting comfortably, NAD, non-toxic in appearance, AA&O x 4 Skin: warm, dry, intact, no rashes or lesions HEENT: NC/AT, PERRL, EOMI, anicteric sclera, conjunctiva without injection, external ear normal to inspection and nontender, nares patent, moist mucus membranes, dentition intact, no oropharyngeal lesions, neck supple, trachea midline, no LAD, no thyromegaly, no JVD Heart: +S1/S2, regular, no m/r/g Lungs: equal air entry bilaterally, no rales/rhonchi/wheezes Abd: +BS, soft, NT/ND, no masses/organomegaly/ascites Ext: warm, 2+ pulses in UE/LE bilaterally, no clubbing/cyanosis or edema. left leg shortened and externally rotated, LLLE neurovascularly intact, no bruising Neuro: nonfocal, patient AA&O x 4, speech intact, no facial droop, moving all extremities on command with equal strength 5/5 Principal Diagnosis Working diagnoses: 1. Closed left hip fracture s/p IM nailing 2. Postoperative anemias/p transfusion (2 units PRBCs) 3. DebilityDC to SNF for inpatient rehab Chronic medical conditions: 1. HTN 2. GERD 3. HLD 4. Depression Discharge Exam General: Resting comfortably in her bedside chair. A&O X3 NAD. Cardiac: RRR with 2/6 LOS Lungs: CTA without W/R/R Abdomen: Normoactive X4. Soft and nontender in all quadrants. Extremities: Distal pulses of the bilateral lower extremities are intact and symmetrical. Capillary refill +2. Negative Homans' sign. No calf tenderness. Surgical dressing to left hip dry and intact Discharge Data Allergies Allergy/AdvReac Type Severity Reaction Status Date / Time No Known Drug Allergies Allergy Unknown . Verified 09/18/20 13:28 Procedures Performed Operation Date: 10/06/20 09:40 Actual Procedures p Left Hip Short Intermedullary Nailing(Left) - Flaco Young DO Ordered Studies CXR done 10/05/2020: No acute cardiopulmonary process X-ray of left femur done 10/05/2020: IMPRESSION: Comminuted and mildly displaced intertrochanteric fracture within the proximal left femur. X-ray of pelvis done 10/05/2020: IMPRESSION: Comminuted and mildly displaced intertrochanteric fracture within the proximal left femur. Xray of left hip post-op 10/06/2020: IMPRESSION: Fluoroscopy provided for internal fixation of a left femoral intertrochanteric fracture. Hospital Course (1) Closed left hip fracture: * S/p IM nailing left hipPOD #3 * plan if for D/C to [facility] for continued IP rehab for PT/OT (strength training) * Pain is adequately controlled. Pt taking only APAP. Will d/C with continued APAP and resumption of her Mobic. Rx for oxycodone to use prn * Recommend DVT prophylaxis X 30 to 35 days (xarelto given increased risk of DVT/PE given this being a Fx) (2) Anemia: * stable/improved s/p Transfusion of 2 units packed RBC's and Venofer infusion. * continue iron supplementation x 30-90 days * recommend FU labs to trend (3) HTN (hypertension): * Acceptable control * Continue Norvasc. (4) Depression with anxiety: * Continue Sertraline 200mg daily * Continue Ativan PRN (5) GERD (gastroesophageal reflux disease): * Chronic. Well controlled. * Continue Omeprazole D/C to [facility]. Total Time Total Time Spent Total Time Spent (In Minutes): 45 min Total Time Includes: Examination of the Patient, Discharge Planning, Medication Reconciliation and Communication With Other Providers Discharge Plan Discharge Items Patient Disposition: Transfer Intermediate Fac Reason For Visit: LEFT HIP FRACTURE Discharge Diagnosis: 1. Left hip fracture s/p IM nailing 2. post-op anemia s/p transfusion Condition on Discharge: Good Activity: As commented below Activity Comment: full weight bearing as tolerated. To have PT/OT Non-emergency contact: Primary Care Provider Call non-emergency contact if: you have any medication questions Follow-up/Referrals: Jai Leonard MD [Primary Care Provider] - Diet: Heart Healthy Addtl Attending Provider Instructions: -Follow restrictions/recommendations regarding recent surgery as outlined by Ortho. -Follow up with Ortho within 2 weeks -Take all medications as outlined --xarelto ordered for 30 more days for DVT prophylaxis --ferrous sulfate ordered given post-op anemia that required transfusion. Would advise that the patient take this for 3 months -recommend follow up H/H in 1 week and subsequently to trend (at discretion of house Physician) -recommend that patient be seen by House Physician within 24-48 hours -return to the ED for new or worsening symptoms Addtl Credit Control Manager Provider Instructions: ORTHOPEDIC INSTRUCTIONS Hip Fracture Activity and Therapy Recommendations: 1. You were shown a series of exercises in the hospital. Do these exercises three times each day if you are able. 2. You will be touch toe weightbearing for the first 30 more days. Medications: 1. Narcotic You will likely be sent from the hospital with the narcotic pain medication that worked best throughout your stay. 2. Xarelto 10 mg daily for 6 weeks to prevent blood clots 3. Other medications may be given for specific circumstances. If you have any questions, please call the office at [phone]. 4. Resume previous home medications unless otherwise instructed Dressing Care: Lorna can be open to air as long as the incisions are not draining. If the incisions are draining or if the lorna are getting caught on your clothes then please cover the lorna with dry gauze. Change the dressings as necessary to keep the incision as dry as possible Showering: You may shower 5 days from the day of surgery as long as the incisions are not draining. Do not soak the incision. Let soapy water run over the lorna and pat them dry. Things To Watch For: 1. Drainage from the incision site that occurs more than one week after your surgery. 2. Increased redness at the incision site. 3. Fever above 102 degrees Fahrenheit. 4. Unusual chest pain or shortness of breath. 5. Call [facility] at with any of the above problems Follow-Up Visit: Follow-up with Dr. Young's PA (Flaco Marr) 2-3 weeks after your day of surgery. He will remove your lorna and answer any questions. If you have any additional questions or concerns, Dr Young is usually in the office at the same time and will be available If you have any questions call Pending Studies at Discharge: No Stand-Alone Forms: My [facility] Skilled Items Patient informed of condition?: Yes DNR: No Discharge Level of Care: Skilled Communicable Disease: No Discharge Prognosis: Improving Lines: None Urinary Catheter: No Medications and DC Order Prescriptions: New Xarelto 10 mg Tablet 10 mg PO 1700 Qty: 30 RF: 0 lorazepam 0.5 mg Tablet 0.25 mg PO DAILY PRN (Reason: anxiety) Qty: 12 RF: 0 acetaminophen 500 mg Tablet 1,000 mg PO Q8 PRN (Reason: pain) Qty: 30 RF: 0 docusate sodium 100 mg Capsule 100 mg PO BID Qty: 60 RF: 0 polyethylene glycol 3350 [Miralax] 17 gram Powder In Packet 17 g PO DAILY PRN (Reason: constipation) Qty: 30 RF: 0 oxycodone 5 mg Tablet 5 mg PO Q4H PRN (Reason: pain) Qty: 36 RF: 0 ferrous sulfate 325 mg (65 mg iron) tablet 325 mg PO BID Qty: 60 RF: 2 Continued alendronate 70 mg tablet 70 mg PO WEEKLY Qty: 12 RF: 3 amlodipine 10 mg tablet 10 mg PO DAILY Qty: 90 RF: 3 omeprazole 40 mg capsule,delayed release(DR/EC) 40 mg PO DAILY Qty: 90 RF: 3 meloxicam 7.5 mg tablet 7.5 mg PO DAILY PRN (Reason: PRN) Qty: 30 RF: 3 sertraline [Zoloft] 100 mg tablet 200 mg PO DAILY Qty: 180 RF: 3 lorazepam 0.5 mg tablet 0.25 mg PO DAILY PRN (Reason: anxiety) Qty: 30 RF: 0 calcium carbonate 600 mg calcium (1,500 mg) tablet 600 mg PO DAILY Qty: 1 RF: 0 cyanocobalamin (vitamin B-12) 1,000 mcg tablet 1,000 mcg PO DAILY Qty: 90 RF: 0 cholecalciferol (vitamin D3) 1,000 unit tablet 2,000 units PO DAILY RF: 0 Discontinued Walking Cane Misc 1 ea .ROUTE .COMPLEX Qty: 1 RF: 0 Discharge Orders: Discharge Order (Routine); Ordered 10/09/20 Ordered By: Tawny Al/Other Patient Handouts: After a Hip Fracture: Common Questions Admission Data Admit Date/Time: 10/06/20 00:01 Attending Provider: Rick Perales Admit Provider: Simran Mayes Primary Care Provider: Jai Leonard [facility] ; Stiven Yusuf at [facility] Other Interventions: Discharge Summary Assessment (RN) Last Done: 10/09/20 17:20 Supervising Physician Co-Signing Physician Notes Patient seen and examined on the day of discharge. I agree with the discharge summary by Tawny SCOTT. I have reviewed the chart including labs, imaging and plans for discharge. patient doing well, stable for discharge, pain is controlled, eating well - Left hip fracture: s/p IM nailing, doing well with PT/OT, needs SNF rehab, insurance authorized Xarelto for 30-35 days for DVT prophylaxis Coding Level of Care Code D/C Day Management >30 mins Diagnoses Closed left hip fracture S72.002A Encounter type: initial encounter Anemia D64.9 Anemia type: other cause HTN (hypertension) I10 Hypertension type: primary hypertension Depression with anxiety F41.8 GERD (gastroesophageal reflux disease) K21.9 Esophagitis presence: esophagitis presence not specified
== END 2020-10-09 17:20 | DRG 481 ==
LOC: ED 22:28 → 3E 10-06 00:01 → SUATTDRO 10-06 00:01 → 3E 10-06 01:23